=== PATIENT | female | born 1955 | race African-American/Black ===

== ENCOUNTER 2017-04-24 04:37 | Emergency (ER) | payer OTHER ==
[~2017-04-24 04:37] MED LIST: CARB1TAB73 PO; GABA-529 PO; INSLAN SQ; INSU100C3 SQ; LISI-660 PO
== END 2017-04-24 05:00 | disposition left against medical advice (07) ==
LOC: EMS 04:38
DX: R06.02 Shortness of breath (principal); Z53.21 Procedure and treatment not carried out due to patient leaving prior to being seen by health care provider

== ENCOUNTER 2017-07-11 22:49 | Inpatient (IN) | payer OTHER ==
[~2017-07-11] VITALS: Ht 165.1 cm; Wt 55.3 kg
[~2017-07-11 22:49] MED LIST changes: +ASPI-556 PO; +ATOR10TA84 PO; -INSU100C3 SQ; +METO25 PO
[2017-07-11 23:07] LABS: GLUCOSE,POINT OF CARE 179 MG/DL (70-110)
[2017-07-12 00:07] LABS: BASOPHILS % (AUTO) 0.8 % (0.0-2.0); EOSINOPHILS % (AUTO) 2.1 % (1.0-6.0); HEMATOCRIT 36.7 % (36-46); HEMOGLOBIN 12.2 g/dL (12.0-16.0); LYMPHOCYTES # (AUTO) 2.9 K/uL (1.0-4.8); LYMPHOCYTES % (AUTO) 35.6 % (22.0-44.0); MEAN CORPUSCULAR HEMOGLOBIN 28.4 pg (26.0-34.0); MEAN CORPUSCULAR HGB CONC 33.2 G/dL (31.0-37.0); MEAN CORPUSCULAR VOLUME 86 fL (80-100); MONOCYTES # (AUTO) 0.6 K/uL (0.1-1.0); MONOCYTES % (AUTO) 6.7 % (2.0-9.0); NEUTROPHILS # (AUTO) 4.5 K/uL (1.8-7.7); NEUTROPHILS % (AUTO) 54.8 % (40.0-70.0); PLATELET COUNT (AUTO) 344 K/uL (150-450); RED BLOOD CELL COUNT(AUTO) 4.29 MIL/uL (4.00-5.20); RED CELL DISTRIBUTION WIDTH 13.6 % (11.5-14.5); WHITE BLOOD COUNT (AUTO) 8.2 K/uL (4.5-11.0)
[2017-07-12 00:19] LABS: ANION GAP 9 mmol/L (8-16); CALCIUM, TOTAL 9.4 mg/dL (8.8-10.5); CARBON DIOXIDE 26 mmol/L (22-29); CHLORIDE 98 mmol/L (98-107); CREATININE 0.96 mg/dL (0.60-1.30); GLOMERULAR FILTR. RATE CALC > 60 mL/min (>60); POTASSIUM 3.4 mmol/L (3.5-5.1); SODIUM SERUM 133 mmol/L (136-145); UREA NITROGEN, BLOOD 11 mg/dL (7-18)
[2017-07-12 00:20] LABS: ALANINE AMINOTRANSFERASE 17 U/L (12-78); ALBUMIN 3.6 g/dL (3.4-5.0); ASPARTATE AMINOTRANSFERASE 14 U/L (15-37); BILIRUBIN,TOTAL 0.5 mg/dL (0.1-1.0); TOTAL PROTEIN, SERUM 7.4 g/dL (6.4-8.2)
[2017-07-12] MEDS ORDERED: NITROGLYCERIN 0.4 MG SUBLINGUAL TABLET #25 SL ONE (02:30)
[2017-07-12] MEDS ORDERED: 0.9% SODIUM CHLORIDE 10 ML SYRINGE IVP PRN (03:15)
[2017-07-12] MEDS ORDERED: ACETAMINOPHEN 325 MG TABLET PO PRN ×2 (03:15→09:30)
[2017-07-12] MEDS ORDERED: ONDANSETRON HCL 4 MG/2 ML VIAL IVP PRN (03:15)
[2017-07-12 08:35] VITALS: BP 128/86
[2017-07-12] MEDS ORDERED: ALBUTEROL SULFATE 2.5 MG/0.5 ML NEB SOLUTION NEB PRN (09:30)
[2017-07-12] MEDS ORDERED: OxyCODONE HCL/ACETAMINOPHEN 5-325 MG TABLET PO PRN (09:30)
[2017-07-12] MEDS ORDERED: MAGNESIUM HYDROXIDE SUSPENSION 30 ML UDCUP PO PRN (09:30)
[2017-07-12] MEDS ORDERED: ENOXAPARIN SODIUM 40 MG/0.4 ML PF SYRINGE SQ ONE (09:30)
[2017-07-12] MEDS ORDERED: DEXTROSE 50%-WATER 25 GM/50 ML SYRINGE IVP PRN (09:30)
[2017-07-12] MEDS ORDERED: POTASSIUM CHLORIDE 20 MEQ ER TABLET PO PRN ×2 (09:30)
[2017-07-12] MEDS ORDERED: POTASSIUM CHL 10 MEQ/WATER 50 ML IV PRN ×2 (09:30)
[2017-07-12] MEDS: PANTOPRAZOLE SODIUM 40 MG DR TABLET PO SCH (09:48)
[2017-07-12 11:37] VITALS: BP 131/81
[2017-07-12] MEDS: INSULIN ASPART 100 UNITS/ML SQ PRN (12:33)
[2017-07-12 15:33] VITALS: BP 131/86
[2017-07-12] MEDS: ONDANSETRON HCL 4 MG/2 ML VIAL IVP PRN (18:09)
[2017-07-12 19:47] VITALS: BP 134/89
[2017-07-12] MEDS: DOCUSATE SODIUM 100 MG CAPSULE PO SCH (21:23)
[2017-07-12 23:45] VITALS: BP 121/81
[2017-07-13 04:02] LABS: GLUCOSE,POINT OF CARE 129 MG/DL (70-110)
[2017-07-13 04:18] VITALS: BP 139/88
[2017-07-13] MEDS: ONDANSETRON HCL 4 MG/2 ML VIAL IVP PRN ×2 (04:24→20:29)
[2017-07-13] MEDS: MORPHINE SULFATE 4 MG/ML SYRINGE IVP PRN ×2 (04:25→20:35)
[2017-07-13 06:50] LABS: INR 1.1 (0.9-1.1); PROTHROMBIN TIME 11.5 SEC (9.4-11.6)
[2017-07-13 07:45] VITALS: BP 134/91
[2017-07-13] MEDS ORDERED: FentaNYL CITRATE-PF 100 MCG/2 ML VIAL ONE (08:41)
[2017-07-13] MEDS ORDERED: MIDAZOLAM HCL 2 MG/2 ML VIAL ONE (08:42)
[2017-07-13] MEDS ORDERED: MIDAZOLAM HCL 2 MG/2 ML VIAL IVP ONE (09:34)
[2017-07-13] MEDS ORDERED: FentaNYL CITRATE-PF 100 MCG/2 ML VIAL IVP ONE (09:34)
[2017-07-13 11:29] VITALS: BP 122/59
[2017-07-13] MEDS: PANTOPRAZOLE SODIUM 40 MG DR TABLET PO SCH (11:38)
[2017-07-13] MEDS: DOCUSATE SODIUM 100 MG CAPSULE PO SCH ×2 (11:38→20:26)
[2017-07-13 12:12] LABS: GLUCOSE,POINT OF CARE 110 MG/DL (70-110)
[2017-07-13 15:52] VITALS: BP 117/67
[2017-07-13 17:23] LABS: GLUCOSE,POINT OF CARE 82 MG/DL (70-110)
[2017-07-13 17:23] LABS: GLUCOSE COMMENT 1 Received Meds; GLUCOSE,POINT OF CARE 145 MG/DL (70-110)
[2017-07-13] MEDS: INSULIN ASPART 100 UNITS/ML SQ PRN (18:11)
[2017-07-13 20:24] VITALS: BP 100/73
[2017-07-13 23:07] VITALS: BP 113/74
[2017-07-14 05:22] VITALS: BP 117/79
[2017-07-14 07:52] VITALS: BP 114/61
[2017-07-14] MEDS: PANTOPRAZOLE SODIUM 40 MG DR TABLET PO SCH (08:05)
[2017-07-14] MEDS: DOCUSATE SODIUM 100 MG CAPSULE PO SCH (08:05)
[2017-07-14] MEDS ORDERED: METOPROLOL TARTRATE 25 MG TABLET PO SCH (09:00)
[2017-07-14 20:12] LABS: GLUCOSE,POINT OF CARE 139 MG/DL (70-110)
[2017-07-14 20:12] LABS: GLUCOSE,POINT OF CARE 110 MG/DL (70-110)
[2017-07-16 04:52] LABS: GLUCOSE,POINT OF CARE 100 MG/DL (70-110)
[2017-07-16 04:52] LABS: GLUCOSE,POINT OF CARE 140 MG/DL (70-110)
[2017-07-16 04:52] LABS: GLUCOSE COMMENT 1 Received Meds; GLUCOSE,POINT OF CARE 168 MG/DL (70-110)
== END 2017-07-14 11:40 | disposition home or self-care (01) | DRG 204 ==
LOC: EMS 22:50 → 5S 07-12 03:20
PROVIDERS: ADMIT Internal Medicine; ATTEND Internal Medicine
PROC: 0BBL3ZX Excision of Left Lung, Percutaneous Approach, Diagnostic (ICD-10-PCS; principal; 2017-07-13)
DX: R91.8 Other nonspecific abnormal finding of lung field (principal); E11.40 Type 2 diabetes mellitus with diabetic neuropathy, unspecified; G20 Parkinson's disease; F29 Unspecified psychosis not due to a substance or known physiological condition; I10 Essential (primary) hypertension; R00.0 Tachycardia, unspecified; F41.9 Anxiety disorder, unspecified; Z91.19 Patient's noncompliance with other medical treatment and regimen; Z87.891 Personal history of nicotine dependence; Z88.6 Allergy status to analgesic agent; Z79.82 Long term (current) use of aspirin; Z79.899 Other long term (current) drug therapy
CPT/HCPCS: 32405; 70450; 82962; 84132; 87015; 87070; 87101; 87205; 88305; 88312; 88313; 88341; 88342; 93005; 96372; 99285; G0480; J1650; J2250; J2270; J2405; J3010

== ENCOUNTER 2017-12-28 13:42 | Inpatient (IN) | payer OTHER ==
[~2017-12-28] VITALS: Ht 160 cm; Wt 63.5 kg
[~2017-12-28 13:42] MED LIST changes: -GABA-529 PO; -INSLAN SQ; -LISI-660 PO
[2017-12-28] MEDS ORDERED: PROPOFOL 1000 MG/ISO-OSM 100 ML IV ONE (13:49)
[2017-12-28] MEDS ORDERED: SUCCINYLCHOLINE CHLORIDE 20 MG/ML 10 ML VIAL IVP ONE ×2 (14:00→17:26)
[2017-12-28] MEDS ORDERED: ETOMIDATE 2 MG/ML 10 ML VIAL IVP ONE ×2 (14:00→17:26)
[2017-12-28] MEDS ORDERED: PROPOFOL 1000 MG/ISO-OSM 100 ML IV PRN (14:15)
[2017-12-28 14:35] LABS: ABG A-A DIFF O2 611.5 mmHg (10-20.0); ABG BASE EXCESS -7.3 mmol/L (-2.0-3.0); ABG CARBOXYHEMOGLOBIN 1.7 % (0.0-1.5); ABG HCO3 18.7 mmol/L (22.0-26.0); ABG METHEMOGLOBIN 0.5 % (0.0-1.5); ABG OXYGEN CONTENT 12.3 mL/dL (15.0-23.0); ABG OXYGEN SATURATION 88.7 % (95.0-98.0); ABG OXYHEMOGLOBIN 86.7 % (94.0-100.0); ABG PCO2 41 mmHg (35-45); ABG PH 7.292 (7.35-7.450); O2 DEVICE,BLOOD GAS VENTILATOR (ROOM AIR); PO2, ARTERIAL BG 63.6 mmHg (79.0-87.0); SITE, BLOOD GAS RT RADIAL; SOURCE, BLOOD GAS ARTERIAL; TEMPERATURE, FAHRENHEIT, BG 96.6 FAHREN (96.0-98.6)
[2017-12-28 14:36] LABS: PEEP,BG 5 cm H2O; VT, ABG 450 ml
[2017-12-28 14:41] LABS: BASOPHILS % (AUTO) 0.2 % (0.0-2.0); EOSINOPHILS % (AUTO) 0 % (1.0-6.0); HEMATOCRIT 29.3 % (36-46); HEMOGLOBIN 9.2 g/dL (12.0-16.0); LYMPHOCYTES # (AUTO) 0.4 K/uL (1.0-4.8); LYMPHOCYTES % (AUTO) 1.6 % (22.0-44.0); MEAN CORPUSCULAR HEMOGLOBIN 25.5 pg (26.0-34.0); MEAN CORPUSCULAR HGB CONC 31.4 G/dL (31.0-37.0); MEAN CORPUSCULAR VOLUME 81 fL (80-100); MONOCYTES # (AUTO) 1.1 K/uL (0.1-1.0); MONOCYTES % (AUTO) 3.9 % (2.0-9.0); NEUTROPHILS # (AUTO) 26.5 K/uL (1.8-7.7); NEUTROPHILS % (AUTO) 94.3 % (40.0-70.0); PLATELET COUNT (AUTO) 278 K/uL (150-450); RED BLOOD CELL COUNT(AUTO) 3.62 MIL/uL (4.00-5.20); RED CELL DISTRIBUTION WIDTH 16.2 % (11.5-14.5)
[2017-12-28] MEDS ORDERED: SODIUM CHLORIDE 0.9% 1,000 ML IV ONE ×2 (14:45→15:30)
[2017-12-28 14:51] LABS: INR 1.4 (0.9-1.1); PROTHROMBIN TIME 14.7 SEC (9.4-11.6)
[2017-12-28 14:56] LABS: APPEARANCE,URINE CLOUDY (CLEAR); BILIRUBIN,URINE NEGATIVE (NEGATIVE); GLUCOSE, URINE (UA) >=1000 mg/dL (NEGATIVE); KETONES,URINE TRACE mg/dL (NEGATIVE); LEUKOCYTE ESTERASE ,URINE NEGATIVE (NEGATIVE); NITRATE,URINE NEGATIVE (NEGATIVE); OCCULT BLOOD,URINE TRACE (NEGATIVE); PH,URINE 5.5 (5.0-8.0); PROTEIN,URINE SEE CONFIRM (NEGATIVE); UROBILINOGEN,URINE 0.2 mg/dL (<=1.0)
[2017-12-28 14:56] LABS: ALBUMIN 2.8 g/dL (3.4-5.0); ALKALINE PHOSPHATASE 127 U/L (46-116); ANION GAP 17 mmol/L (8-16); ASPARTATE AMINOTRANSFERASE 31 U/L (15-37); BILIRUBIN,TOTAL 0.9 mg/dL (0.1-1.0); CALCIUM, TOTAL 8.8 mg/dL (8.8-10.5); CARBON DIOXIDE 22 mmol/L (22-29); CHLORIDE 99 mmol/L (98-107); CREATININE 0.87 mg/dL (0.60-1.30); GLOMERULAR FILTR. RATE CALC > 60 mL/min (>60); POTASSIUM 3.2 mmol/L (3.5-5.1); SODIUM SERUM 138 mmol/L (136-145); TOTAL PROTEIN, SERUM 6.9 g/dL (6.4-8.2); UREA NITROGEN, BLOOD 13 mg/dL (7-18)
[2017-12-28 15:00] LABS: GLUCOSE,RANDOM 405 mg/dL (70-110)
[2017-12-28] MEDS ORDERED: PIPERACILLIN/TAZO 3.375 GM/D5W 50 ML IV ONE (15:00)
[2017-12-28] MEDS ORDERED: LEVOFLOXACIN 500 MG/D5% WATER 100 ML IV ONE (15:00)
[2017-12-28 15:09] LABS: ALANINE AMINOTRANSFERASE 37 U/L (12-78)
[2017-12-28 15:29] LABS: LACTIC ACID 7.2 mmol/L (0.4-2.0)
[2017-12-28] MEDS ORDERED: ONDANSETRON HCL 4 MG/2 ML VIAL IVP PRN ×2 (15:30→15:45)
[2017-12-28 15:36] LABS: SULFOSALICYLIC ACID,URINE 3+ (Negative)
[2017-12-28 15:37] LABS: RBC,URINE 0-2 /HPF (0-2)
[2017-12-28 15:38] LABS: BACTERIA,URINE Few /HPF (None Seen); SQUAMOUS EPITHELIAL CELL,UR Many /LPF (None Seen)
[2017-12-28 15:39] LABS: AMORPHOUS SEDIMENT,UR Many /LPF (None Seen)
[2017-12-28] MEDS ORDERED: ZOLPIDEM TARTRATE 5 MG TABLET PO PRN (15:45)
[2017-12-28] MEDS ORDERED: ALBUTEROL SULFATE 2.5 MG/0.5 ML NEB SOLUTION NEB PRN ×2 (15:45→16:00)
[2017-12-28] MEDS ORDERED: MAGNESIUM HYDROXIDE SUSPENSION 30 ML UDCUP PO PRN (15:45)
[2017-12-28] MEDS ORDERED: BISACODYL 10 MG RECTAL RECTAL SUPPOSITORY PR PRN (15:45)
[2017-12-28] MEDS ORDERED: IPRATROPIUM BROMIDE 0.5 MG/2.5 ML NEB SOLUTION NEB PRN ×2 (15:45→16:00)
[2017-12-28] MEDS ORDERED: NOREPINEPHRINE 4 MG/D5%-WATER 250 ML IV PRN (15:45)
[2017-12-28] MEDS ORDERED: INSULIN ASPART 100 UNITS/ML SQ PRN (16:00)
[2017-12-28] MEDS: BENZONATATE 100 MG CAPSULE PO SCH ×2 (16:00→21:00)
[2017-12-28 16:41] LABS: INFLUENZA TYPE A NEGATIVE FOR TYPE A (NEGATIVE); INFLUENZA TYPE B NEGATIVE FOR TYPE B (NEGATIVE)
[2017-12-28] MEDS ORDERED: SODIUM CHLORIDE 0.9% 500 ML IV ONE (16:42)
[2017-12-28] MEDS: HEPARIN SODIUM,PORCINE 5,000 UNITS/ML VIAL SQ SCH ×2 (16:55→23:28)
[2017-12-28 17:58] LABS: ABG A-A DIFF O2 576.1 mmHg (10-20.0); ABG BASE EXCESS -0.8 mmol/L (-2.0-3.0); ABG CARBOXYHEMOGLOBIN 0.7 % (0.0-1.5); ABG HCO3 23.9 mmol/L (22.0-26.0); ABG METHEMOGLOBIN 0.4 % (0.0-1.5); ABG OXYGEN CONTENT 12.7 mL/dL (15.0-23.0); ABG OXYGEN SATURATION 97.6 % (95.0-98.0); ABG OXYHEMOGLOBIN 96.5 % (94.0-100.0); ABG PCO2 37 mmHg (35-45); ABG TOTAL HEMOGLOBIN 9.2 G/dL (12.0-18.0); O2 DEVICE,BLOOD GAS VENTILATOR (ROOM AIR); PO2, ARTERIAL BG 99.9 mmHg (79.0-87.0); SITE, BLOOD GAS RT RADIAL; SOURCE, BLOOD GAS ARTERIAL; TEMPERATURE, FAHRENHEIT, BG 98.4 FAHREN (96.0-98.6); VENT MODE, BG Press. Control Vent (ROOM AIR)
[2017-12-28 17:59] LABS: PEEP,BG 10 cm H2O
[2017-12-28 18:15] VITALS: BP 94/52
[2017-12-28] MEDS: RINGERS SOLUTION,LACTATED 1,000 ML IV SCH (18:26)
[2017-12-28] MEDS: MethylPREDNISolone SOD SUCC 125 MG/2 ML VIAL IVP SCH ×2 (18:29→23:29)
[2017-12-28] MEDS: PROPOFOL 1000 MG/ISO-OSM 100 ML IV PRN (19:10)
[2017-12-28] MEDS: ALBUTEROL SULFATE 2.5 MG/0.5 ML NEB SOLUTION NEB SCH (19:49)
[2017-12-28] MEDS: IPRATROPIUM BROMIDE 0.5 MG/2.5 ML NEB SOLUTION NEB SCH (19:50)
[2017-12-28 20:00] VITALS: BP 96/66
[2017-12-28 20:18] LABS: GLUCOSE,POINT OF CARE 274 MG/DL (70-110)
[2017-12-28] MEDS ORDERED: POTASSIUM CHLORIDE 20 MEQ ER TABLET PO PRN ×2 (20:30)
[2017-12-28] MEDS ORDERED: POTASSIUM CHL 10 MEQ/WATER 50 ML IV PRN (20:30)
[2017-12-28] MEDS: DOCUSATE SODIUM 100 MG CAPSULE PO SCH (21:00)
[2017-12-28] MEDS: GuaiFENesin SR 600 MG ER TABLET PO SCH (21:00)
[2017-12-28] MEDS ORDERED: INSULIN REGULAR, HUMAN 100 UNITS/ML SQ PRN (23:30)
[2017-12-29] VITALS (8 sets, daily range): BP systolic 86–134; BP diastolic 58–94
[2017-12-29] MEDS: POTASSIUM CHL 10 MEQ/WATER 50 ML IV PRN ×3 (00:03→01:56)
[2017-12-29] MEDS: INSULIN ASPART 100 UNITS/ML SQ PRN ×4 (00:04→17:46)
[2017-12-29] MEDS ORDERED: SODIUM CHLORIDE 0.9% 100 ML ONE (00:06)
[2017-12-29 01:08] LABS: GLUCOSE,POINT OF CARE 180 MG/DL (70-110)
[2017-12-29] MEDS: IPRATROPIUM BROMIDE 0.5 MG/2.5 ML NEB SOLUTION NEB SCH ×4 (01:38→20:12)
[2017-12-29] MEDS: ALBUTEROL SULFATE 2.5 MG/0.5 ML NEB SOLUTION NEB SCH ×4 (01:38→20:12)
[2017-12-29] MEDS: RINGERS SOLUTION,LACTATED 1,000 ML IV SCH ×3 (01:57→23:10)
[2017-12-29] MEDS: MORPHINE SULFATE 2 MG/ML SYRINGE IVP PRN (02:07)
[2017-12-29] MEDS: PROPOFOL 1000 MG/ISO-OSM 100 ML IV PRN ×3 (05:09→20:31)
[2017-12-29] MEDS: MethylPREDNISolone SOD SUCC 125 MG/2 ML VIAL IVP SCH ×3 (05:10→17:14)
[2017-12-29 05:53] LABS: BASOPHILS % (AUTO) 0.1 % (0.0-2.0); EOSINOPHILS % (AUTO) 0 % (1.0-6.0); HEMATOCRIT 24.3 % (36-46); LYMPHOCYTES # (AUTO) 0.3 K/uL (1.0-4.8); LYMPHOCYTES % (AUTO) 1.5 % (22.0-44.0); MEAN CORPUSCULAR HEMOGLOBIN 26.1 pg (26.0-34.0); MEAN CORPUSCULAR HGB CONC 32.8 G/dL (31.0-37.0); MEAN CORPUSCULAR VOLUME 80 fL (80-100); MONOCYTES # (AUTO) 0.4 K/uL (0.1-1.0); MONOCYTES % (AUTO) 1.8 % (2.0-9.0); NEUTROPHILS # (AUTO) 20.6 K/uL (1.8-7.7); PLATELET COUNT (AUTO) 215 K/uL (150-450); RED BLOOD CELL COUNT(AUTO) 3.06 MIL/uL (4.00-5.20); RED CELL DISTRIBUTION WIDTH 15.8 % (11.5-14.5)
[2017-12-29 05:58] LABS: NEUTROPHILS % (AUTO) 96.6 % (40.0-70.0)
[2017-12-29 06:01] LABS: HEMOGLOBIN A1C 7.7 % (4.5-6.2)
[2017-12-29 06:04] LABS: ALANINE AMINOTRANSFERASE 32 U/L (12-78); ALBUMIN 2.1 g/dL (3.4-5.0); ALKALINE PHOSPHATASE 120 U/L (46-116); ANION GAP 7 mmol/L (8-16); ASPARTATE AMINOTRANSFERASE 30 U/L (15-37); BILIRUBIN,TOTAL 0.4 mg/dL (0.1-1.0); CALCIUM, TOTAL 8.7 mg/dL (8.8-10.5); CARBON DIOXIDE 27 mmol/L (22-29); CHLORIDE 105 mmol/L (98-107); CREATININE 0.52 mg/dL (0.60-1.30); GLOMERULAR FILTR. RATE CALC > 60 mL/min (>60); GLUCOSE,RANDOM 148 mg/dL (70-110); POTASSIUM 4.3 mmol/L (3.5-5.1); SODIUM SERUM 139 mmol/L (136-145); TOTAL PROTEIN, SERUM 5.6 g/dL (6.4-8.2); UREA NITROGEN, BLOOD 14 mg/dL (7-18)
[2017-12-29] MEDS: ASPIRIN 81 MG EC TABLET PO SCH (08:14)
[2017-12-29] MEDS: GuaiFENesin SR 600 MG ER TABLET PO SCH ×2 (08:14→20:30)
[2017-12-29] MEDS: HEPARIN SODIUM,PORCINE 5,000 UNITS/ML VIAL SQ SCH ×2 (08:14→15:51)
[2017-12-29] MEDS: PANTOPRAZOLE SODIUM 40 MG DR TABLET PO SCH (08:14)
[2017-12-29] MEDS: CARBIDOPA/LEVODOPA 25-250 MG TABLET PO SCH (08:14)
[2017-12-29] MEDS: DOCUSATE SODIUM 100 MG CAPSULE PO SCH ×2 (08:15→20:30)
[2017-12-29] MEDS: ATORVASTATIN CALCIUM 10 MG TABLET PO SCH (08:15)
[2017-12-29] MEDS: BENZONATATE 100 MG CAPSULE PO SCH ×3 (08:17→20:30)
[2017-12-29 09:43] LABS: ABG A-A DIFF O2 330.6 mmHg (10-20.0); ABG CARBOXYHEMOGLOBIN 1.6 % (0.0-1.5); ABG HCO3 24.7 mmol/L (22.0-26.0); ABG METHEMOGLOBIN 0.4 % (0.0-1.5); ABG OXYGEN CONTENT 11.1 mL/dL (15.0-23.0); ABG OXYGEN SATURATION 92.8 % (95.0-98.0); ABG OXYHEMOGLOBIN 90.9 % (94.0-100.0); ABG PCO2 31 mmHg (35-45); ABG PH 7.493 (7.35-7.450); ABG TOTAL HEMOGLOBIN 8.6 G/dL (12.0-18.0); PO2, ARTERIAL BG 63.5 mmHg (79.0-87.0); SOURCE, BLOOD GAS ARTERIAL
[2017-12-29 09:44] LABS: O2 DEVICE,BLOOD GAS VENTILATOR (ROOM AIR); PEEP,BG 10 cm H2O; SITE, BLOOD GAS RT RADIAL; SPONTANEOUS VT, BG 490 ml; VENT MODE, BG Press. Control Vent (ROOM AIR)
[2017-12-29 12:08] LABS: GLUCOSE,POINT OF CARE 161 MG/DL (70-110)
[2017-12-29 12:08] LABS: GLUCOSE,POINT OF CARE 165 MG/DL (70-110)
[2017-12-29] MEDS ORDERED: *CLINICAL-CEFEPIME DOSING CLINICAL ONE (13:30)
[2017-12-29] MEDS: LEVOFLOXACIN 750 MG/D5% WATER 150 ML IV SCH (15:51)
[2017-12-29 16:07] LABS: ABG A-A DIFF O2 317.6 mmHg (10-20.0); ABG BASE EXCESS -0.7 mmol/L (-2.0-3.0); ABG CARBOXYHEMOGLOBIN 1.3 % (0.0-1.5); ABG HCO3 24.2 mmol/L (22.0-26.0); ABG METHEMOGLOBIN 0.2 % (0.0-1.5); ABG OXYGEN CONTENT 11.8 mL/dL (15.0-23.0); ABG OXYGEN SATURATION 95.8 % (95.0-98.0); ABG OXYHEMOGLOBIN 94.4 % (94.0-100.0); ABG PCO2 31 mmHg (35-45); ABG PH 7.485 (7.35-7.450); ABG TOTAL HEMOGLOBIN 8.8 G/dL (12.0-18.0); PO2, ARTERIAL BG 76.4 mmHg (79.0-87.0); SOURCE, BLOOD GAS ARTERIAL; TEMPERATURE, FAHRENHEIT, BG 98.5 FAHREN (96.0-98.6)
[2017-12-29] MEDS: CEFEPIME HCL 1 GM in DEXTROSE 5%-WATER 10 ML IV SCH (16:38)
[2017-12-29 17:18] LABS: O2 DEVICE,BLOOD GAS VENTILATOR (ROOM AIR); PEEP,BG 12 cm H2O; SITE, BLOOD GAS RT RADIAL; SPONTANEOUS VT, BG 510 ml; VENT MODE, BG Press. Control Vent (ROOM AIR)
[2017-12-29 17:52] LABS: GLUCOSE,POINT OF CARE 173 MG/DL (70-110)
[2017-12-29] MEDS ORDERED: SODIUM CHLORIDE 0.9% 250 ML IV ONE (20:21)
[2017-12-29] MEDS ORDERED: SODIUM CHLORIDE 0.9% 500 ML IV ONE (23:54)
[2017-12-30] VITALS (8 sets, daily range): BP systolic 93–128; BP diastolic 56–86
[2017-12-30] MEDS: MethylPREDNISolone SOD SUCC 125 MG/2 ML VIAL IVP SCH ×5 (00:22→23:35)
[2017-12-30] MEDS: HEPARIN SODIUM,PORCINE 5,000 UNITS/ML VIAL SQ SCH ×4 (00:23→23:35)
[2017-12-30] MEDS: INSULIN ASPART 100 UNITS/ML SQ PRN ×5 (00:26→23:43)
[2017-12-30] MEDS: IPRATROPIUM BROMIDE 0.5 MG/2.5 ML NEB SOLUTION NEB SCH ×4 (02:10→19:49)
[2017-12-30] MEDS: ALBUTEROL SULFATE 2.5 MG/0.5 ML NEB SOLUTION NEB SCH ×4 (02:10→19:49)
[2017-12-30 04:04] LABS: GLUCOSE,POINT OF CARE 160 MG/DL (70-110)
[2017-12-30] MEDS: CEFEPIME HCL 1 GM in DEXTROSE 5%-WATER 10 ML IV SCH ×2 (04:37→15:48)
[2017-12-30] MEDS: PROPOFOL 1000 MG/ISO-OSM 100 ML IV PRN ×4 (04:39→21:51)
[2017-12-30 05:23] LABS: EOSINOPHILS % (AUTO) 0 % (1.0-6.0); HEMATOCRIT 24.6 % (36-46); HEMOGLOBIN 8.1 g/dL (12.0-16.0); LYMPHOCYTES # (AUTO) 0.3 K/uL (1.0-4.8); LYMPHOCYTES % (AUTO) 1.2 % (22.0-44.0); MEAN CORPUSCULAR HEMOGLOBIN 26.4 pg (26.0-34.0); MEAN CORPUSCULAR VOLUME 80 fL (80-100); MONOCYTES # (AUTO) 0.4 K/uL (0.1-1.0); MONOCYTES % (AUTO) 1.9 % (2.0-9.0); NEUTROPHILS # (AUTO) 21.8 K/uL (1.8-7.7); PLATELET COUNT (AUTO) 251 K/uL (150-450); RED BLOOD CELL COUNT(AUTO) 3.08 MIL/uL (4.00-5.20); RED CELL DISTRIBUTION WIDTH 15.6 % (11.5-14.5)
[2017-12-30 05:30] LABS: ANION GAP 7 mmol/L (8-16); CALCIUM, TOTAL 9.4 mg/dL (8.8-10.5); CARBON DIOXIDE 27 mmol/L (22-29); CHLORIDE 105 mmol/L (98-107); GLOMERULAR FILTR. RATE CALC > 60 mL/min (>60); GLUCOSE,RANDOM 181 mg/dL (70-110); POTASSIUM 4.1 mmol/L (3.5-5.1); SODIUM SERUM 139 mmol/L (136-145); UREA NITROGEN, BLOOD 15 mg/dL (7-18)
[2017-12-30 05:46] LABS: NEUTROPHILS % (AUTO) 96.9 % (40.0-70.0)
[2017-12-30] MEDS: DOCUSATE SODIUM 100 MG CAPSULE PO SCH ×2 (08:50→20:05)
[2017-12-30] MEDS: RINGERS SOLUTION,LACTATED 1,000 ML IV SCH ×2 (08:50→17:42)
[2017-12-30] MEDS: ATORVASTATIN CALCIUM 10 MG TABLET PO SCH (08:51)
[2017-12-30] MEDS: ASPIRIN 81 MG EC TABLET PO SCH (08:51)
[2017-12-30] MEDS: CARBIDOPA/LEVODOPA 25-250 MG TABLET PO SCH (08:51)
[2017-12-30] MEDS: BENZONATATE 100 MG CAPSULE PO SCH ×3 (08:51→20:05)
[2017-12-30] MEDS: PANTOPRAZOLE SODIUM 40 MG DR TABLET PO SCH (08:51)
[2017-12-30] MEDS: GuaiFENesin SR 600 MG ER TABLET PO SCH ×2 (08:51→20:05)
[2017-12-30] MEDS: LEVOFLOXACIN 750 MG/D5% WATER 150 ML IV SCH (15:46)
[2017-12-30 17:33] LABS: GLUCOSE,POINT OF CARE 193 MG/DL (70-110)
[2017-12-30 17:33] LABS: GLUCOSE,POINT OF CARE 230 MG/DL (70-110)
[2017-12-30 18:43] LABS: GLUCOSE,POINT OF CARE 196 MG/DL (70-110)
[2017-12-30] MEDS: MORPHINE SULFATE 2 MG/ML SYRINGE IVP PRN (20:54)
[2017-12-31] VITALS (10 sets, daily range): BP systolic 93–128; BP diastolic 65–75
[2017-12-31] MEDS: ALBUTEROL SULFATE 2.5 MG/0.5 ML NEB SOLUTION NEB SCH ×4 (01:38→19:36)
[2017-12-31] MEDS: IPRATROPIUM BROMIDE 0.5 MG/2.5 ML NEB SOLUTION NEB SCH ×4 (01:38→19:36)
[2017-12-31] MEDS ORDERED: SODIUM CHLORIDE 0.9% 250 ML IV ONE (01:49)
[2017-12-31] MEDS ORDERED: SODIUM CHLORIDE 0.9% 500 ML IV ONE (01:50)
[2017-12-31] MEDS: RINGERS SOLUTION,LACTATED 1,000 ML IV SCH ×2 (03:41→13:38)
[2017-12-31] MEDS: CEFEPIME HCL 1 GM in DEXTROSE 5%-WATER 10 ML IV SCH ×2 (03:43→16:57)
[2017-12-31 04:33] LABS: GLUCOSE,POINT OF CARE 237 MG/DL (70-110)
[2017-12-31 04:33] LABS: GLUCOSE,POINT OF CARE 215 MG/DL (70-110)
[2017-12-31 05:12] LABS: BASOPHILS % (AUTO) 0.2 % (0.0-2.0); EOSINOPHILS % (AUTO) 0 % (1.0-6.0); HEMATOCRIT 24.6 % (36-46); HEMOGLOBIN 7.9 g/dL (12.0-16.0); LYMPHOCYTES # (AUTO) 0.1 K/uL (1.0-4.8); LYMPHOCYTES % (AUTO) 0.6 % (22.0-44.0); MEAN CORPUSCULAR HEMOGLOBIN 25.7 pg (26.0-34.0); MEAN CORPUSCULAR HGB CONC 32.1 G/dL (31.0-37.0); MEAN CORPUSCULAR VOLUME 80 fL (80-100); MONOCYTES # (AUTO) 0.4 K/uL (0.1-1.0); MONOCYTES % (AUTO) 1.9 % (2.0-9.0); NEUTROPHILS # (AUTO) 22.1 K/uL (1.8-7.7); PLATELET COUNT (AUTO) 282 K/uL (150-450); RED BLOOD CELL COUNT(AUTO) 3.08 MIL/uL (4.00-5.20); RED CELL DISTRIBUTION WIDTH 15.4 % (11.5-14.5)
[2017-12-31 05:15] LABS: NEUTROPHILS % (AUTO) 97.3 % (40.0-70.0)
[2017-12-31 05:22] LABS: ANION GAP 2 mmol/L (8-16); CALCIUM, TOTAL 9.4 mg/dL (8.8-10.5); CARBON DIOXIDE 31 mmol/L (22-29); CHLORIDE 105 mmol/L (98-107); CREATININE 0.35 mg/dL (0.60-1.30); GLOMERULAR FILTR. RATE CALC > 60 mL/min (>60); GLUCOSE,RANDOM 259 mg/dL (70-110); POTASSIUM 4.4 mmol/L (3.5-5.1); SODIUM SERUM 138 mmol/L (136-145); UREA NITROGEN, BLOOD 15 mg/dL (7-18)
[2017-12-31] MEDS: MethylPREDNISolone SOD SUCC 125 MG/2 ML VIAL IVP SCH ×3 (05:24→18:00)
[2017-12-31] MEDS: INSULIN ASPART 100 UNITS/ML SQ PRN ×2 (05:25→12:46)
[2017-12-31] MEDS: PROPOFOL 1000 MG/ISO-OSM 100 ML IV PRN ×3 (05:44→21:54)
[2017-12-31] MEDS: BENZONATATE 100 MG CAPSULE PO SCH ×3 (08:13→20:24)
[2017-12-31] MEDS: HEPARIN SODIUM,PORCINE 5,000 UNITS/ML VIAL SQ SCH (08:13)
[2017-12-31] MEDS: DOCUSATE SODIUM 100 MG CAPSULE PO SCH ×2 (08:13→20:24)
[2017-12-31] MEDS: MORPHINE SULFATE 2 MG/ML SYRINGE IVP PRN ×2 (08:13→21:57)
[2017-12-31] MEDS: GuaiFENesin SR 600 MG ER TABLET PO SCH ×2 (08:14→20:24)
[2017-12-31] MEDS: CARBIDOPA/LEVODOPA 25-250 MG TABLET PO SCH (08:14)
[2017-12-31] MEDS: PANTOPRAZOLE SODIUM 40 MG DR TABLET PO SCH (08:14)
[2017-12-31] MEDS: ATORVASTATIN CALCIUM 10 MG TABLET PO SCH (08:14)
[2017-12-31] MEDS: ASPIRIN 81 MG EC TABLET PO SCH (08:14)
[2017-12-31 10:46] LABS: ABG BASE EXCESS 3.9 mmol/L (-2.0-3.0); ABG CARBOXYHEMOGLOBIN 0.9 % (0.0-1.5); ABG HCO3 27.6 mmol/L (22.0-26.0); ABG METHEMOGLOBIN 0.4 % (0.0-1.5); ABG OXYGEN CONTENT 11.1 mL/dL (15.0-23.0); ABG OXYGEN SATURATION 93.4 % (95.0-98.0); ABG OXYHEMOGLOBIN 92.2 % (94.0-100.0); ABG PCO2 42 mmHg (35-45); ABG TOTAL HEMOGLOBIN 8.5 G/dL (12.0-18.0); PO2, ARTERIAL BG 68.7 mmHg (79.0-87.0); SOURCE, BLOOD GAS ARTERIAL; TEMPERATURE, FAHRENHEIT, BG 98.6 FAHREN (96.0-98.6)
[2017-12-31 10:47] LABS: O2 DEVICE,BLOOD GAS VENTILATOR (ROOM AIR); PEEP,BG 5 cm H2O; SITE, BLOOD GAS RT RADIAL; SPONTANEOUS VT, BG 410 ml; VENT MODE, BG Press. Control Vent (ROOM AIR)
[2017-12-31] MEDS ORDERED: DEXTROSE 50%-WATER 25 GM/50 ML SYRINGE IVP PRN (16:00)
[2017-12-31] MEDS ORDERED: HEPARIN SODIUM,PORCINE 5,000 UNITS/ML VIAL IVP PRN (16:30)
[2017-12-31] MEDS ORDERED: HEPARIN SODIUM,PORCINE 5,000 UNITS/ML VIAL IVP ONE (16:30)
[2017-12-31 16:43] LABS: GLUCOSE,POINT OF CARE 300 MG/DL (70-110)
[2017-12-31 16:50] LABS: BASOPHILS % (AUTO) 0.1 % (0.0-2.0); EOSINOPHILS % (AUTO) 0 % (1.0-6.0); HEMATOCRIT 24.5 % (36-46); HEMOGLOBIN 7.9 g/dL (12.0-16.0); LYMPHOCYTES # (AUTO) 0.4 K/uL (1.0-4.8); LYMPHOCYTES % (AUTO) 1.3 % (22.0-44.0); MEAN CORPUSCULAR HEMOGLOBIN 25.5 pg (26.0-34.0); MEAN CORPUSCULAR HGB CONC 32.2 G/dL (31.0-37.0); MEAN CORPUSCULAR VOLUME 79 fL (80-100); MONOCYTES # (AUTO) 1.7 K/uL (0.1-1.0); MONOCYTES % (AUTO) 6.1 % (2.0-9.0); NEUTROPHILS # (AUTO) 25.8 K/uL (1.8-7.7); PLATELET COUNT (AUTO) 302 K/uL (150-450); RED BLOOD CELL COUNT(AUTO) 3.09 MIL/uL (4.00-5.20); RED CELL DISTRIBUTION WIDTH 15.6 % (11.5-14.5)
[2017-12-31 16:55] LABS: NEUTROPHILS % (AUTO) 92.5 % (40.0-70.0)
[2017-12-31] MEDS: DEXTROSE 50%-WATER 25 GM/50 ML SYRINGE IVP PRN ×2 (16:56→18:59)
[2017-12-31] MEDS: LEVOFLOXACIN 750 MG/D5% WATER 150 ML IV SCH (16:57)
[2017-12-31] MEDS: HEPARIN SODIUM 25000 UNITS/D5W 250 ML IV PRN (17:49)
[2017-12-31] MEDS: DEXTROSE 5%-0.45% SODIUM CHL 1,000 ML IV SCH (18:35)
[2017-12-31 19:03] LABS: GLUCOSE,POINT OF CARE 32 MG/DL (70-110)
[2017-12-31 22:33] LABS: GLUCOSE,POINT OF CARE 146 MG/DL (70-110)
[2018-01-01] VITALS: BP 94/63
[2018-01-01] MEDS: MethylPREDNISolone SOD SUCC 125 MG/2 ML VIAL IVP SCH ×4 (00:14→17:21)
[2018-01-01] MEDS: INSULIN REGULAR, HUMAN 100 UNITS/ML SQ PRN ×4 (00:15→17:21)
[2018-01-01] MEDS: ALBUTEROL SULFATE 2.5 MG/0.5 ML NEB SOLUTION NEB SCH ×4 (01:41→20:03)
[2018-01-01] MEDS: IPRATROPIUM BROMIDE 0.5 MG/2.5 ML NEB SOLUTION NEB SCH ×4 (01:42→20:03)
[2018-01-01] MEDS: CEFEPIME HCL 1 GM in DEXTROSE 5%-WATER 10 ML IV SCH ×2 (03:55→15:47)
[2018-01-01 04:00] VITALS: BP 106/66
[2018-01-01] MEDS: PROPOFOL 1000 MG/ISO-OSM 100 ML IV PRN ×3 (04:00→09:09)
[2018-01-01 06:26] LABS: BASOPHILS % (AUTO) 0.2 % (0.0-2.0); EOSINOPHILS % (AUTO) 0 % (1.0-6.0); HEMATOCRIT 23.5 % (36-46); HEMOGLOBIN 7.6 g/dL (12.0-16.0); LYMPHOCYTES # (AUTO) 0.2 K/uL (1.0-4.8); LYMPHOCYTES % (AUTO) 0.9 % (22.0-44.0); MEAN CORPUSCULAR HEMOGLOBIN 25.5 pg (26.0-34.0); MEAN CORPUSCULAR HGB CONC 32.1 G/dL (31.0-37.0); MEAN CORPUSCULAR VOLUME 80 fL (80-100); MONOCYTES # (AUTO) 0.5 K/uL (0.1-1.0); MONOCYTES % (AUTO) 1.9 % (2.0-9.0); NEUTROPHILS # (AUTO) 24.1 K/uL (1.8-7.7); PLATELET COUNT (AUTO) 275 K/uL (150-450); RED BLOOD CELL COUNT(AUTO) 2.96 MIL/uL (4.00-5.20); RED CELL DISTRIBUTION WIDTH 15.6 % (11.5-14.5)
[2018-01-01 06:39] LABS: GLUCOSE,POINT OF CARE 45 MG/DL (70-110)
[2018-01-01 06:39] LABS: GLUCOSE,POINT OF CARE 31 MG/DL (70-110)
[2018-01-01 06:39] LABS: GLUCOSE,POINT OF CARE 197 MG/DL (70-110)
[2018-01-01 06:39] LABS: GLUCOSE,POINT OF CARE 142 MG/DL (70-110)
[2018-01-01 06:39] LABS: GLUCOSE,POINT OF CARE 56 MG/DL (70-110)
[2018-01-01 06:39] LABS: GLUCOSE,POINT OF CARE 270 MG/DL (70-110)
[2018-01-01 06:39] LABS: GLUCOSE,POINT OF CARE 98 MG/DL (70-110)
[2018-01-01] MEDS: DEXTROSE 5%-0.45% SODIUM CHL 1,000 ML IV SCH ×2 (06:57→20:50)
[2018-01-01 07:01] LABS: ANION GAP 4 mmol/L (8-16); CALCIUM, TOTAL 9.1 mg/dL (8.8-10.5); CARBON DIOXIDE 30 mmol/L (22-29); CHLORIDE 104 mmol/L (98-107); CREATININE 0.52 mg/dL (0.60-1.30); GLOMERULAR FILTR. RATE CALC > 60 mL/min (>60); GLUCOSE,RANDOM 277 mg/dL (70-110); PHOSPHORUS 2.3 mg/dL (2.5-4.9); POTASSIUM 4.4 mmol/L (3.5-5.1); SODIUM SERUM 138 mmol/L (136-145); UREA NITROGEN, BLOOD 14 mg/dL (7-18)
[2018-01-01] MEDS ORDERED: 0.9% SODIUM CHLORIDE 5 ML NEB SOLUTION NEB ONE (07:32)
[2018-01-01 08:00] VITALS: BP 109/65
[2018-01-01] MEDS: DOCUSATE SODIUM 100 MG CAPSULE PO SCH ×2 (09:07→20:50)
[2018-01-01] MEDS: GuaiFENesin SR 600 MG ER TABLET PO SCH ×2 (09:07→20:50)
[2018-01-01] MEDS: ASPIRIN 81 MG EC TABLET PO SCH (09:08)
[2018-01-01] MEDS: PANTOPRAZOLE SODIUM 40 MG DR TABLET PO SCH (09:08)
[2018-01-01] MEDS: ATORVASTATIN CALCIUM 10 MG TABLET PO SCH (09:08)
[2018-01-01] MEDS: CARBIDOPA/LEVODOPA 25-250 MG TABLET PO SCH (09:08)
[2018-01-01] MEDS: BENZONATATE 100 MG CAPSULE PO SCH ×3 (09:10→20:50)
[2018-01-01 09:49] LABS: ABG A-A DIFF O2 174.3 mmHg (10-20.0); ABG BASE EXCESS 1.5 mmol/L (-2.0-3.0); ABG CARBOXYHEMOGLOBIN 1.4 % (0.0-1.5); ABG HCO3 25.8 mmol/L (22.0-26.0); ABG METHEMOGLOBIN 0.2 % (0.0-1.5); ABG OXYGEN CONTENT 11.1 mL/dL (15.0-23.0); ABG OXYGEN SATURATION 94.5 % (95.0-98.0); ABG PCO2 36 mmHg (35-45); ABG PH 7.465 (7.35-7.450); ABG TOTAL HEMOGLOBIN 8.4 G/dL (12.0-18.0); PO2, ARTERIAL BG 69.6 mmHg (79.0-87.0); SOURCE, BLOOD GAS ARTERIAL; TEMPERATURE, FAHRENHEIT, BG 98.6 FAHREN (96.0-98.6)
[2018-01-01 09:53] LABS: O2 DEVICE,BLOOD GAS VENTILATOR (ROOM AIR); SITE, BLOOD GAS RT RADIAL; VT, ABG 500 ml
[2018-01-01 09:54] LABS: PEEP,BG 5 cm H2O
[2018-01-01 12:00] VITALS: BP 106/62
[2018-01-01] MEDS: HEPARIN SODIUM,PORCINE 5,000 UNITS/ML VIAL IVP PRN (14:09)
[2018-01-01] MEDS: LEVOFLOXACIN 750 MG/D5% WATER 150 ML IV SCH (15:47)
[2018-01-01 16:00] VITALS: BP 103/62
[2018-01-01] MEDS: HEPARIN SODIUM 25000 UNITS/D5W 250 ML IV PRN (18:17)
[2018-01-01 19:07] LABS: GLUCOSE,POINT OF CARE 295 MG/DL (70-110)
[2018-01-01 20:00] VITALS: BP 102/65
[2018-01-02] VITALS: BP 105/60
[2018-01-02] MEDS: INSULIN REGULAR, HUMAN 100 UNITS/ML SQ PRN ×4 (00:01→17:40)
[2018-01-02] MEDS: MethylPREDNISolone SOD SUCC 125 MG/2 ML VIAL IVP SCH ×4 (00:06→17:39)
[2018-01-02] MEDS: PROPOFOL 1000 MG/ISO-OSM 100 ML IV PRN ×4 (01:03→22:35)
[2018-01-02] MEDS: IPRATROPIUM BROMIDE 0.5 MG/2.5 ML NEB SOLUTION NEB SCH ×4 (03:36→19:28)
[2018-01-02] MEDS: ALBUTEROL SULFATE 2.5 MG/0.5 ML NEB SOLUTION NEB SCH ×4 (03:36→19:28)
[2018-01-02 04:00] VITALS: BP 101/71
[2018-01-02 05:08] LABS: BASOPHILS % (AUTO) 0.3 % (0.0-2.0); EOSINOPHILS % (AUTO) 0 % (1.0-6.0); HEMATOCRIT 24.6 % (36-46); HEMOGLOBIN 7.8 g/dL (12.0-16.0); LYMPHOCYTES # (AUTO) 0.2 K/uL (1.0-4.8); LYMPHOCYTES % (AUTO) 0.6 % (22.0-44.0); MEAN CORPUSCULAR HEMOGLOBIN 25.2 pg (26.0-34.0); MEAN CORPUSCULAR HGB CONC 31.6 G/dL (31.0-37.0); MEAN CORPUSCULAR VOLUME 80 fL (80-100); MONOCYTES # (AUTO) 0.7 K/uL (0.1-1.0); MONOCYTES % (AUTO) 2.7 % (2.0-9.0); NEUTROPHILS # (AUTO) 25.9 K/uL (1.8-7.7); PLATELET COUNT (AUTO) 282 K/uL (150-450); RED BLOOD CELL COUNT(AUTO) 3.08 MIL/uL (4.00-5.20); RED CELL DISTRIBUTION WIDTH 15.7 % (11.5-14.5)
[2018-01-02 05:09] LABS: NEUTROPHILS % (AUTO) 96.4 % (40.0-70.0)
[2018-01-02] MEDS: CEFEPIME HCL 1 GM in DEXTROSE 5%-WATER 10 ML IV SCH ×2 (05:12→15:34)
[2018-01-02 05:18] LABS: ANION GAP 3 mmol/L (8-16); CALCIUM, TOTAL 9.1 mg/dL (8.8-10.5); CARBON DIOXIDE 32 mmol/L (22-29); CHLORIDE 104 mmol/L (98-107); CREATININE 0.52 mg/dL (0.60-1.30); GLOMERULAR FILTR. RATE CALC > 60 mL/min (>60); GLUCOSE,RANDOM 266 mg/dL (70-110); POTASSIUM 3.9 mmol/L (3.5-5.1); SODIUM SERUM 139 mmol/L (136-145); UREA NITROGEN, BLOOD 13 mg/dL (7-18)
[2018-01-02] MEDS: HEPARIN SODIUM,PORCINE 5,000 UNITS/ML VIAL IVP PRN (05:43)
[2018-01-02 08:00] VITALS: BP 121/70
[2018-01-02 08:03] LABS: GLUCOSE,POINT OF CARE 274 MG/DL (70-110)
[2018-01-02 08:03] LABS: GLUCOSE,POINT OF CARE 321 MG/DL (70-110)
[2018-01-02 08:03] LABS: GLUCOSE,POINT OF CARE 313 MG/DL (70-110)
[2018-01-02 08:03] LABS: GLUCOSE,POINT OF CARE 270 MG/DL (70-110)
[2018-01-02] MEDS: ATORVASTATIN CALCIUM 10 MG TABLET PO SCH (09:03)
[2018-01-02] MEDS: CARBIDOPA/LEVODOPA 25-250 MG TABLET PO SCH (09:03)
[2018-01-02] MEDS: PANTOPRAZOLE SODIUM 40 MG DR TABLET PO SCH (09:03)
[2018-01-02] MEDS: BENZONATATE 100 MG CAPSULE PO SCH ×3 (09:03→20:30)
[2018-01-02] MEDS: DOCUSATE SODIUM 100 MG CAPSULE PO SCH ×2 (09:03→20:30)
[2018-01-02] MEDS: ASPIRIN 81 MG EC TABLET PO SCH (09:04)
[2018-01-02] MEDS: GuaiFENesin SR 600 MG ER TABLET PO SCH ×2 (09:04→20:30)
[2018-01-02] MEDS: DEXTROSE 5%-0.45% SODIUM CHL 1,000 ML IV SCH (10:36)
[2018-01-02 12:00] VITALS: BP 114/66
[2018-01-02] MEDS: LEVOFLOXACIN 750 MG/D5% WATER 150 ML IV SCH (15:33)
[2018-01-02] MEDS: SODIUM CHLORIDE 0.45% 1,000 ML IV SCH (15:33)
[2018-01-02 16:00] VITALS: BP 97/67
[2018-01-02 20:00] VITALS: BP 96/59
[2018-01-02] MEDS: INSULIN DETEMIR 100 UNITS/ML SQ SCH (20:41)
[2018-01-02] MEDS: HEPARIN SODIUM 25000 UNITS/D5W 250 ML IV PRN (21:12)
[2018-01-03] VITALS: BP 95/61
[2018-01-03] MEDS: MethylPREDNISolone SOD SUCC 125 MG/2 ML VIAL IVP SCH ×4 (00:17→18:00)
[2018-01-03] MEDS: INSULIN REGULAR, HUMAN 100 UNITS/ML SQ PRN ×4 (00:18→19:14)
[2018-01-03] MEDS: IPRATROPIUM BROMIDE 0.5 MG/2.5 ML NEB SOLUTION NEB SCH ×4 (01:47→19:41)
[2018-01-03] MEDS: ALBUTEROL SULFATE 2.5 MG/0.5 ML NEB SOLUTION NEB SCH ×4 (01:48→19:41)
[2018-01-03 04:00] VITALS: BP 102/65
[2018-01-03] MEDS: CEFEPIME HCL 1 GM in DEXTROSE 5%-WATER 10 ML IV SCH ×2 (04:05→17:56)
[2018-01-03 05:13] LABS: EOSINOPHILS % (AUTO) 0 % (1.0-6.0); HEMATOCRIT 25.4 % (36-46); HEMOGLOBIN 8.2 g/dL (12.0-16.0); LYMPHOCYTES # (AUTO) 0.3 K/uL (1.0-4.8); LYMPHOCYTES % (AUTO) 0.9 % (22.0-44.0); MEAN CORPUSCULAR HEMOGLOBIN 25.5 pg (26.0-34.0); MEAN CORPUSCULAR HGB CONC 32.2 G/dL (31.0-37.0); MEAN CORPUSCULAR VOLUME 79 fL (80-100); MONOCYTES # (AUTO) 0.7 K/uL (0.1-1.0); MONOCYTES % (AUTO) 2.3 % (2.0-9.0); NEUTROPHILS # (AUTO) 28.5 K/uL (1.8-7.7); PLATELET COUNT (AUTO) 344 K/uL (150-450); RED BLOOD CELL COUNT(AUTO) 3.21 MIL/uL (4.00-5.20); RED CELL DISTRIBUTION WIDTH 15.6 % (11.5-14.5)
[2018-01-03] MEDS: PROPOFOL 1000 MG/ISO-OSM 100 ML IV PRN ×4 (05:13→23:32)
[2018-01-03 05:58] LABS: GLUCOSE,POINT OF CARE 272 MG/DL (70-110)
[2018-01-03 05:58] LABS: GLUCOSE,POINT OF CARE 262 MG/DL (70-110)
[2018-01-03 05:58] LABS: GLUCOSE,POINT OF CARE 235 MG/DL (70-110)
[2018-01-03 06:33] LABS: ANION GAP 3 mmol/L (8-16); CALCIUM, TOTAL 8.9 mg/dL (8.8-10.5); CARBON DIOXIDE 32 mmol/L (22-29); CHLORIDE 103 mmol/L (98-107); CREATININE 0.46 mg/dL (0.60-1.30); GLOMERULAR FILTR. RATE CALC > 60 mL/min (>60); GLUCOSE,RANDOM 263 mg/dL (70-110); POTASSIUM 3.8 mmol/L (3.5-5.1); SODIUM SERUM 138 mmol/L (136-145); UREA NITROGEN, BLOOD 15 mg/dL (7-18)
[2018-01-03 06:46] LABS: NEUTROPHILS % (AUTO) 96.8 % (40.0-70.0)
[2018-01-03 07:53] LABS: GLUCOSE,POINT OF CARE 265 MG/DL (70-110)
[2018-01-03 07:53] LABS: GLUCOSE,POINT OF CARE 281 MG/DL (70-110)
[2018-01-03 08:00] VITALS: BP 129/71
[2018-01-03] MEDS: GuaiFENesin SR 600 MG ER TABLET PO SCH ×2 (10:07→20:44)
[2018-01-03] MEDS: BENZONATATE 100 MG CAPSULE PO SCH ×3 (10:08→20:45)
[2018-01-03] MEDS: ATORVASTATIN CALCIUM 10 MG TABLET PO SCH (10:08)
[2018-01-03] MEDS: PANTOPRAZOLE SODIUM 40 MG DR TABLET PO SCH (10:08)
[2018-01-03] MEDS: CARBIDOPA/LEVODOPA 25-250 MG TABLET PO SCH (10:08)
[2018-01-03] MEDS: DOCUSATE SODIUM 100 MG CAPSULE PO SCH ×2 (10:08→20:44)
[2018-01-03] MEDS: ASPIRIN 81 MG EC TABLET PO SCH (10:08)
[2018-01-03] MEDS ORDERED: RACEPINEPHRINE HCL 2.25% 0.5 ML NEB SOLUTION NEB ONE (10:54)
[2018-01-03 12:00] VITALS: BP 98/57
[2018-01-03] MEDS: HEPARIN SODIUM,PORCINE 5,000 UNITS/ML VIAL IVP PRN (12:23)
[2018-01-03] MEDS: SODIUM CHLORIDE 0.45% 1,000 ML IV SCH (12:38)
[2018-01-03 15:13] LABS: GLUCOSE,POINT OF CARE 249 MG/DL (70-110)
[2018-01-03 16:00] VITALS: BP 96/57
[2018-01-03] MEDS: LEVOFLOXACIN 750 MG/D5% WATER 150 ML IV SCH (17:57)
[2018-01-03 20:00] VITALS: BP 91/54
[2018-01-03 20:03] LABS: GLUCOSE,POINT OF CARE 302 MG/DL (70-110)
[2018-01-03] MEDS: INSULIN DETEMIR 100 UNITS/ML SQ SCH (22:41)
[2018-01-04] VITALS (7 sets, daily range): BP systolic 91–128; BP diastolic 53–68
[2018-01-04] MEDS: MethylPREDNISolone SOD SUCC 125 MG/2 ML VIAL IVP SCH ×5 (00:41→23:31)
[2018-01-04] MEDS: INSULIN REGULAR, HUMAN 100 UNITS/ML SQ PRN ×5 (00:43→23:56)
[2018-01-04] MEDS: HEPARIN SODIUM 25000 UNITS/D5W 250 ML IV PRN ×2 (01:05→22:28)
[2018-01-04] MEDS: HEPARIN SODIUM,PORCINE 5,000 UNITS/ML VIAL IVP PRN ×2 (01:52→10:18)
[2018-01-04] MEDS: IPRATROPIUM BROMIDE 0.5 MG/2.5 ML NEB SOLUTION NEB SCH ×4 (01:52→19:33)
[2018-01-04] MEDS: ALBUTEROL SULFATE 2.5 MG/0.5 ML NEB SOLUTION NEB SCH ×4 (01:53→19:33)
[2018-01-04] MEDS: CEFEPIME HCL 1 GM in DEXTROSE 5%-WATER 10 ML IV SCH ×2 (04:40→15:32)
[2018-01-04] MEDS: PROPOFOL 1000 MG/ISO-OSM 100 ML IV PRN ×3 (05:28→23:59)
[2018-01-04 06:33] LABS: GLUCOSE,POINT OF CARE 277 MG/DL (70-110)
[2018-01-04 06:34] LABS: GLUCOSE,POINT OF CARE 290 MG/DL (70-110)
[2018-01-04 06:34] LABS: GLUCOSE,POINT OF CARE 246 MG/DL (70-110)
[2018-01-04 06:40] LABS: HEMATOCRIT 26.4 % (36-46); HEMOGLOBIN 8.4 g/dL (12.0-16.0); MEAN CORPUSCULAR HEMOGLOBIN 25.2 pg (26.0-34.0); MEAN CORPUSCULAR HGB CONC 31.7 G/dL (31.0-37.0); MEAN CORPUSCULAR VOLUME 80 fL (80-100); PLATELET COUNT (AUTO) 331 K/uL (150-450); RED BLOOD CELL COUNT(AUTO) 3.32 MIL/uL (4.00-5.20); RED CELL DISTRIBUTION WIDTH 16.1 % (11.5-14.5)
[2018-01-04 08:34] LABS: ANION GAP 7 mmol/L (8-16); CALCIUM, TOTAL 9.1 mg/dL (8.8-10.5); CARBON DIOXIDE 29 mmol/L (22-29); CHLORIDE 103 mmol/L (98-107); CREATININE 0.49 mg/dL (0.60-1.30); GLOMERULAR FILTR. RATE CALC > 60 mL/min (>60); GLUCOSE,RANDOM 247 mg/dL (70-110); SODIUM SERUM 139 mmol/L (136-145); UREA NITROGEN, BLOOD 17 mg/dL (7-18)
[2018-01-04] MEDS: DOCUSATE SODIUM 100 MG CAPSULE PO SCH ×2 (08:34→20:24)
[2018-01-04] MEDS: ASPIRIN 81 MG EC TABLET PO SCH (08:34)
[2018-01-04] MEDS: ATORVASTATIN CALCIUM 10 MG TABLET PO SCH (08:34)
[2018-01-04] MEDS: CARBIDOPA/LEVODOPA 25-250 MG TABLET PO SCH (08:35)
[2018-01-04] MEDS: BENZONATATE 100 MG CAPSULE PO SCH ×3 (08:35→20:24)
[2018-01-04] MEDS: GuaiFENesin SR 600 MG ER TABLET PO SCH ×2 (08:35→20:24)
[2018-01-04] MEDS: PANTOPRAZOLE SODIUM 40 MG DR TABLET PO SCH (08:36)
[2018-01-04 10:50] LABS: BAND NEUTROPHILS % (MANUAL) 2 % (1-5); LYMPHOCYTES % (MANUAL) 7 % (22-44); MONOCYTES % (MANUAL) 2 % (2-9); SEGMENTED NEUTROPHILS % 89 % (40-70)
[2018-01-04] MEDS: SODIUM CHLORIDE 0.45% 1,000 ML IV SCH (11:55)
[2018-01-04 15:12] LABS: GLUCOSE,POINT OF CARE 225 MG/DL (70-110)
[2018-01-04] MEDS: LEVOFLOXACIN 750 MG/D5% WATER 150 ML IV SCH (15:32)
[2018-01-04] MEDS: MORPHINE SULFATE 2 MG/ML SYRINGE IVP PRN (19:38)
[2018-01-04] MEDS: INSULIN DETEMIR 100 UNITS/ML SQ SCH (20:25)
[2018-01-04 23:13] LABS: GLUCOSE,POINT OF CARE 247 MG/DL (70-110)
[2018-01-04 23:13] LABS: GLUCOSE,POINT OF CARE 253 MG/DL (70-110)
[2018-01-05] VITALS (11 sets, daily range): BP systolic 90–147; BP diastolic 54–78
[2018-01-05] MEDS: IPRATROPIUM BROMIDE 0.5 MG/2.5 ML NEB SOLUTION NEB SCH ×4 (01:30→20:06)
[2018-01-05] MEDS: ALBUTEROL SULFATE 2.5 MG/0.5 ML NEB SOLUTION NEB SCH ×4 (01:30→20:06)
[2018-01-05] MEDS: CEFEPIME HCL 1 GM in DEXTROSE 5%-WATER 10 ML IV SCH ×2 (03:34→15:27)
[2018-01-05] MEDS: MORPHINE SULFATE 2 MG/ML SYRINGE IVP PRN ×3 (03:38→21:02)
[2018-01-05] MEDS: SODIUM CHLORIDE 0.45% 1,000 ML IV SCH (04:41)
[2018-01-05] MEDS: MethylPREDNISolone SOD SUCC 125 MG/2 ML VIAL IVP SCH ×3 (05:07→23:52)
[2018-01-05] MEDS: INSULIN REGULAR, HUMAN 100 UNITS/ML SQ PRN ×4 (05:39→23:53)
[2018-01-05 06:57] LABS: ANION GAP 4 mmol/L (8-16); CALCIUM, TOTAL 8.7 mg/dL (8.8-10.5); CARBON DIOXIDE 31 mmol/L (22-29); CHLORIDE 101 mmol/L (98-107); CREATININE 0.43 mg/dL (0.60-1.30); GLOMERULAR FILTR. RATE CALC > 60 mL/min (>60); GLUCOSE,RANDOM 276 mg/dL (70-110); SODIUM SERUM 136 mmol/L (136-145); UREA NITROGEN, BLOOD 17 mg/dL (7-18)
[2018-01-05] MEDS ORDERED: HEPARIN SODIUM,PORCINE 5,000 UNITS/ML VIAL IVP PRN (08:00)
[2018-01-05] MEDS: ATORVASTATIN CALCIUM 10 MG TABLET PO SCH (08:07)
[2018-01-05] MEDS: ASPIRIN 81 MG EC TABLET PO SCH (08:07)
[2018-01-05] MEDS: BENZONATATE 100 MG CAPSULE PO SCH ×3 (08:07→20:11)
[2018-01-05] MEDS: CARBIDOPA/LEVODOPA 25-250 MG TABLET PO SCH (08:07)
[2018-01-05] MEDS: DOCUSATE SODIUM 100 MG CAPSULE PO SCH ×2 (08:07→20:11)
[2018-01-05] MEDS: GuaiFENesin SR 600 MG ER TABLET PO SCH ×2 (08:08→20:11)
[2018-01-05] MEDS: PANTOPRAZOLE SODIUM 40 MG DR TABLET PO SCH (08:08)
[2018-01-05] MEDS: HEPARIN SODIUM,PORCINE 5,000 UNITS/ML VIAL IVP PRN (08:10)
[2018-01-05] MEDS: PROPOFOL 1000 MG/ISO-OSM 100 ML IV PRN ×2 (11:26→23:26)
[2018-01-05 13:12] LABS: GLUCOSE,POINT OF CARE 267 MG/DL (70-110)
[2018-01-05] MEDS: LEVOFLOXACIN 750 MG/D5% WATER 150 ML IV SCH (15:26)
[2018-01-05 19:13] LABS: GLUCOSE,POINT OF CARE 271 MG/DL (70-110)
[2018-01-05 19:13] LABS: GLUCOSE,POINT OF CARE 280 MG/DL (70-110)
[2018-01-05 19:14] LABS: GLUCOSE,POINT OF CARE 240 MG/DL (70-110)
[2018-01-05] MEDS: INSULIN DETEMIR 100 UNITS/ML SQ SCH (20:12)
[2018-01-05] MEDS: HEPARIN SODIUM 25000 UNITS/D5W 250 ML IV PRN (21:37)
[2018-01-05 23:57] LABS: GLUCOSE,POINT OF CARE 240 MG/DL (70-110)
[2018-01-06] VITALS: BP 90/56
[2018-01-06] MEDS: HEPARIN SODIUM,PORCINE 5,000 UNITS/ML VIAL IVP PRN (00:27)
[2018-01-06] MEDS: SODIUM CHLORIDE 0.45% 1,000 ML IV SCH ×2 (00:33→20:36)
[2018-01-06] MEDS: ALBUTEROL SULFATE 2.5 MG/0.5 ML NEB SOLUTION NEB SCH ×4 (02:33→20:28)
[2018-01-06] MEDS: IPRATROPIUM BROMIDE 0.5 MG/2.5 ML NEB SOLUTION NEB SCH ×4 (02:33→20:28)
[2018-01-06] MEDS: CEFEPIME HCL 1 GM in DEXTROSE 5%-WATER 10 ML IV SCH ×2 (03:48→16:22)
[2018-01-06 04:00] VITALS: BP 103/62
[2018-01-06] MEDS: MORPHINE SULFATE 2 MG/ML SYRINGE IVP PRN ×2 (04:06→17:09)
[2018-01-06] MEDS: INSULIN REGULAR, HUMAN 100 UNITS/ML SQ PRN ×4 (05:30→20:40)
[2018-01-06 05:42] LABS: BASOPHILS % (AUTO) 0.3 % (0.0-2.0); EOSINOPHILS % (AUTO) 0 % (1.0-6.0); HEMATOCRIT 24.9 % (36-46); LYMPHOCYTES # (AUTO) 0.3 K/uL (1.0-4.8); LYMPHOCYTES % (AUTO) 0.9 % (22.0-44.0); MEAN CORPUSCULAR HEMOGLOBIN 25.3 pg (26.0-34.0); MEAN CORPUSCULAR HGB CONC 32.1 G/dL (31.0-37.0); MEAN CORPUSCULAR VOLUME 79 fL (80-100); MONOCYTES # (AUTO) 1.1 K/uL (0.1-1.0); MONOCYTES % (AUTO) 3.8 % (2.0-9.0); PLATELET COUNT (AUTO) 362 K/uL (150-450); RED BLOOD CELL COUNT(AUTO) 3.16 MIL/uL (4.00-5.20); RED CELL DISTRIBUTION WIDTH 16.2 % (11.5-14.5)
[2018-01-06 06:01] LABS: ANION GAP 3 mmol/L (8-16); CALCIUM, TOTAL 8.7 mg/dL (8.8-10.5); CARBON DIOXIDE 31 mmol/L (22-29); CHLORIDE 101 mmol/L (98-107); CREATININE 0.43 mg/dL (0.60-1.30); GLOMERULAR FILTR. RATE CALC > 60 mL/min (>60); GLUCOSE,RANDOM 303 mg/dL (70-110); PHOSPHORUS 2.9 mg/dL (2.5-4.9); POTASSIUM 4.3 mmol/L (3.5-5.1); SODIUM SERUM 135 mmol/L (136-145); UREA NITROGEN, BLOOD 18 mg/dL (7-18)
[2018-01-06] MEDS: PROPOFOL 1000 MG/ISO-OSM 100 ML IV PRN ×2 (07:18→21:19)
[2018-01-06 08:00] VITALS: BP 105/68
[2018-01-06] MEDS: ACETAMINOPHEN 325 MG TABLET PO PRN ×2 (08:27→16:22)
[2018-01-06] MEDS: PANTOPRAZOLE SODIUM 40 MG DR TABLET PO SCH (08:28)
[2018-01-06] MEDS: ATORVASTATIN CALCIUM 10 MG TABLET PO SCH (08:28)
[2018-01-06] MEDS: DOCUSATE SODIUM 100 MG CAPSULE PO SCH ×2 (08:28→20:37)
[2018-01-06] MEDS: MethylPREDNISolone SOD SUCC 125 MG/2 ML VIAL IVP SCH ×2 (08:28→16:22)
[2018-01-06] MEDS: GuaiFENesin SR 600 MG ER TABLET PO SCH ×2 (08:28→20:37)
[2018-01-06] MEDS: CARBIDOPA/LEVODOPA 25-250 MG TABLET PO SCH (08:28)
[2018-01-06] MEDS: ASPIRIN 81 MG EC TABLET PO SCH (08:28)
[2018-01-06] MEDS: BENZONATATE 100 MG CAPSULE PO SCH ×3 (08:29→20:37)
[2018-01-06 08:47] LABS: GLUCOSE,POINT OF CARE 248 MG/DL (70-110)
[2018-01-06 08:48] LABS: GLUCOSE,POINT OF CARE 290 MG/DL (70-110)
[2018-01-06 11:23] LABS: GLUCOSE,POINT OF CARE 222 MG/DL (70-110)
[2018-01-06 12:00] VITALS: BP 93/57
[2018-01-06] MEDS: LEVOFLOXACIN 750 MG/D5% WATER 150 ML IV SCH (16:21)
[2018-01-06 17:09] VITALS: BP 89/55
[2018-01-06 17:38] LABS: GLUCOSE,POINT OF CARE 261 MG/DL (70-110)
[2018-01-06 20:00] VITALS: BP 95/56
[2018-01-06] MEDS ORDERED: SODIUM CHLORIDE 0.9% 250 ML IV ONE (20:05)
[2018-01-06] MEDS: INSULIN DETEMIR 100 UNITS/ML SQ SCH (20:39)
[2018-01-06 22:28] LABS: GLUCOSE,POINT OF CARE 217 MG/DL (70-110)
[2018-01-07] VITALS (7 sets, daily range): BP systolic 112–140; BP diastolic 55–74
[2018-01-07] MEDS: MethylPREDNISolone SOD SUCC 125 MG/2 ML VIAL IVP SCH ×3 (00:46→15:02)
[2018-01-07] MEDS: HEPARIN SODIUM 25000 UNITS/D5W 250 ML IV PRN (00:47)
[2018-01-07] MEDS: INSULIN REGULAR, HUMAN 100 UNITS/ML SQ PRN ×5 (00:48→20:37)
[2018-01-07] MEDS: IPRATROPIUM BROMIDE 0.5 MG/2.5 ML NEB SOLUTION NEB SCH ×4 (02:25→20:16)
[2018-01-07] MEDS: ALBUTEROL SULFATE 2.5 MG/0.5 ML NEB SOLUTION NEB SCH ×4 (02:25→20:16)
[2018-01-07] MEDS: CEFEPIME HCL 1 GM in DEXTROSE 5%-WATER 10 ML IV SCH ×2 (04:46→15:08)
[2018-01-07] MEDS: PROPOFOL 1000 MG/ISO-OSM 100 ML IV PRN ×3 (04:49→22:29)
[2018-01-07 06:59] LABS: BASOPHILS % (AUTO) 0.2 % (0.0-2.0); EOSINOPHILS % (AUTO) 0.2 % (1.0-6.0); HEMATOCRIT 27.2 % (36-46); HEMOGLOBIN 8.6 g/dL (12.0-16.0); LYMPHOCYTES # (AUTO) 0.4 K/uL (1.0-4.8); LYMPHOCYTES % (AUTO) 1.3 % (22.0-44.0); MEAN CORPUSCULAR HEMOGLOBIN 25.5 pg (26.0-34.0); MEAN CORPUSCULAR HGB CONC 31.7 G/dL (31.0-37.0); MEAN CORPUSCULAR VOLUME 80 fL (80-100); MONOCYTES % (AUTO) 3.2 % (2.0-9.0); PLATELET COUNT (AUTO) 371 K/uL (150-450); RED BLOOD CELL COUNT(AUTO) 3.39 MIL/uL (4.00-5.20); RED CELL DISTRIBUTION WIDTH 16.2 % (11.5-14.5)
[2018-01-07 07:01] LABS: NEUTROPHILS % (AUTO) 95.1 % (40.0-70.0)
[2018-01-07 08:28] LABS: GLUCOSE,POINT OF CARE 204 MG/DL (70-110)
[2018-01-07 08:28] LABS: GLUCOSE,POINT OF CARE 182 MG/DL (70-110)
[2018-01-07] MEDS: GuaiFENesin SR 600 MG ER TABLET PO SCH ×2 (08:41→20:35)
[2018-01-07] MEDS: ATORVASTATIN CALCIUM 10 MG TABLET PO SCH (08:42)
[2018-01-07] MEDS: ASPIRIN 81 MG EC TABLET PO SCH (08:42)
[2018-01-07] MEDS: CARBIDOPA/LEVODOPA 25-250 MG TABLET PO SCH (08:42)
[2018-01-07] MEDS: PANTOPRAZOLE SODIUM 40 MG DR TABLET PO SCH (08:42)
[2018-01-07] MEDS: DOCUSATE SODIUM 100 MG CAPSULE PO SCH ×2 (08:42→20:35)
[2018-01-07] MEDS: HYDROCODONE/ACETAMINOPHEN 5-325 MG TABLET PO PRN (08:42)
[2018-01-07] MEDS: BENZONATATE 100 MG CAPSULE PO SCH ×3 (08:43→20:35)
[2018-01-07] MEDS: MORPHINE SULFATE 2 MG/ML SYRINGE IVP PRN (09:22)
[2018-01-07] MEDS ORDERED: RAPID SEQUENCE KIT [RSI] 1 EACH KIT ONE (09:28)
[2018-01-07] MEDS ORDERED: SUCCINYLCHOLINE CHLORIDE 20 MG/ML 10 ML VIAL ONE (09:29)
[2018-01-07 10:51] LABS: PLATELET MORPHOLOGY COMMENT LARGE PLTS PRESENT
[2018-01-07] MEDS: LEVOFLOXACIN 750 MG/D5% WATER 150 ML IV SCH (15:07)
[2018-01-07] MEDS: SODIUM CHLORIDE 0.45% 1,000 ML IV SCH (15:09)
[2018-01-07 17:18] LABS: GLUCOSE,POINT OF CARE 253 MG/DL (70-110)
[2018-01-07 17:18] LABS: GLUCOSE,POINT OF CARE 256 MG/DL (70-110)
[2018-01-07] MEDS: INSULIN DETEMIR 100 UNITS/ML SQ SCH (20:36)
[2018-01-07 20:58] LABS: GLUCOSE,POINT OF CARE 277 MG/DL (70-110)
[2018-01-08] VITALS (11 sets, daily range): BP systolic 100–145; BP diastolic 7–95
[2018-01-08] MEDS: MethylPREDNISolone SOD SUCC 125 MG/2 ML VIAL IVP SCH ×2 (00:40→08:47)
[2018-01-08] MEDS: INSULIN REGULAR, HUMAN 100 UNITS/ML SQ PRN ×4 (00:42→17:52)
[2018-01-08] MEDS: HEPARIN SODIUM 25000 UNITS/D5W 250 ML IV PRN (00:42)
[2018-01-08] MEDS: ALBUTEROL SULFATE 2.5 MG/0.5 ML NEB SOLUTION NEB SCH ×4 (02:20→20:24)
[2018-01-08] MEDS: IPRATROPIUM BROMIDE 0.5 MG/2.5 ML NEB SOLUTION NEB SCH ×4 (02:20→20:24)
[2018-01-08] MEDS: CEFEPIME HCL 1 GM in DEXTROSE 5%-WATER 10 ML IV SCH ×2 (04:56→15:06)
[2018-01-08] MEDS: PROPOFOL 1000 MG/ISO-OSM 100 ML IV PRN ×3 (04:58→20:13)
[2018-01-08 05:42] LABS: HEMOGLOBIN 8.7 g/dL (12.0-16.0); MEAN CORPUSCULAR HGB CONC 32.2 G/dL (31.0-37.0); MEAN CORPUSCULAR VOLUME 81 fL (80-100); PLATELET COUNT (AUTO) 333 K/uL (150-450); RED BLOOD CELL COUNT(AUTO) 3.35 MIL/uL (4.00-5.20); RED CELL DISTRIBUTION WIDTH 16.1 % (11.5-14.5)
[2018-01-08 06:28] LABS: GLUCOSE,POINT OF CARE 129 MG/DL (70-110)
[2018-01-08 06:28] LABS: GLUCOSE,POINT OF CARE 174 MG/DL (70-110)
[2018-01-08] MEDS: GuaiFENesin SR 600 MG ER TABLET PO SCH ×2 (08:43→20:54)
[2018-01-08] MEDS: BENZONATATE 100 MG CAPSULE PO SCH ×3 (08:44→20:54)
[2018-01-08] MEDS: ASPIRIN 81 MG EC TABLET PO SCH (08:48)
[2018-01-08] MEDS: ATORVASTATIN CALCIUM 10 MG TABLET PO SCH (08:48)
[2018-01-08] MEDS: SODIUM CHLORIDE 0.45% 1,000 ML IV SCH (08:48)
[2018-01-08] MEDS: DOCUSATE SODIUM 100 MG CAPSULE PO SCH ×2 (08:48→20:54)
[2018-01-08] MEDS: CARBIDOPA/LEVODOPA 25-250 MG TABLET PO SCH (08:48)
[2018-01-08] MEDS: LANSOPRAZOLE 30 MG SOLUBLE TABLET PO SCH (09:27)
[2018-01-08] MEDS: MORPHINE SULFATE 2 MG/ML SYRINGE IVP PRN ×3 (09:28→22:46)
[2018-01-08 11:57] LABS: BAND NEUTROPHILS % (MANUAL) 1 % (1-5); LYMPHOCYTES % (MANUAL) 4 % (22-44); MONOCYTES % (MANUAL) 4 % (2-9); SEGMENTED NEUTROPHILS % 91 % (40-70)
[2018-01-08] MEDS: MethylPREDNISolone SOD SUCC 40 MG/ML VIAL IVP SCH (15:06)
[2018-01-08] MEDS: LEVOFLOXACIN 750 MG/D5% WATER 150 ML IV SCH (15:06)
[2018-01-08 17:53] LABS: GLUCOSE,POINT OF CARE 259 MG/DL (70-110)
[2018-01-08] MEDS: INSULIN DETEMIR 100 UNITS/ML SQ SCH (21:17)
[2018-01-09] VITALS (11 sets, daily range): BP systolic 109–137; BP diastolic 63–75
[2018-01-09] MEDS: MethylPREDNISolone SOD SUCC 40 MG/ML VIAL IVP SCH ×3 (00:35→16:14)
[2018-01-09] MEDS: INSULIN REGULAR, HUMAN 100 UNITS/ML SQ PRN ×4 (00:42→18:04)
[2018-01-09] MEDS: IPRATROPIUM BROMIDE 0.5 MG/2.5 ML NEB SOLUTION NEB SCH ×4 (02:07→20:02)
[2018-01-09] MEDS: ALBUTEROL SULFATE 2.5 MG/0.5 ML NEB SOLUTION NEB SCH ×4 (02:07→20:02)
[2018-01-09] MEDS: HEPARIN SODIUM 25000 UNITS/D5W 250 ML IV PRN (02:50)
[2018-01-09] MEDS: MORPHINE SULFATE 2 MG/ML SYRINGE IVP PRN ×4 (02:58→22:23)
[2018-01-09] MEDS: CEFEPIME HCL 1 GM in DEXTROSE 5%-WATER 10 ML IV SCH ×2 (03:37→16:14)
[2018-01-09] MEDS: PROPOFOL 1000 MG/ISO-OSM 100 ML IV PRN ×3 (03:37→23:06)
[2018-01-09] MEDS: SODIUM CHLORIDE 0.45% 1,000 ML IV SCH (05:59)
[2018-01-09 07:02] LABS: GLUCOSE,POINT OF CARE 239 MG/DL (70-110)
[2018-01-09 07:34] LABS: GLUCOSE,POINT OF CARE 218 MG/DL (70-110)
[2018-01-09 07:34] LABS: GLUCOSE,POINT OF CARE 269 MG/DL (70-110)
[2018-01-09 07:34] LABS: GLUCOSE,POINT OF CARE 230 MG/DL (70-110)
[2018-01-09] MEDS: CARBIDOPA/LEVODOPA 25-250 MG TABLET PO SCH (08:58)
[2018-01-09] MEDS: ASPIRIN 81 MG EC TABLET PO SCH (08:58)
[2018-01-09] MEDS: LANSOPRAZOLE 30 MG SOLUBLE TABLET PO SCH (08:58)
[2018-01-09] MEDS: GuaiFENesin SR 600 MG ER TABLET PO SCH ×2 (08:58→22:22)
[2018-01-09] MEDS: DOCUSATE SODIUM 100 MG CAPSULE PO SCH ×2 (08:58→22:22)
[2018-01-09] MEDS: BENZONATATE 100 MG CAPSULE PO SCH ×3 (08:59→22:22)
[2018-01-09] MEDS: ATORVASTATIN CALCIUM 10 MG TABLET PO SCH (09:01)
[2018-01-09 13:03] LABS: GLUCOSE,POINT OF CARE 241 MG/DL (70-110)
[2018-01-09] MEDS: LEVOFLOXACIN 750 MG/D5% WATER 150 ML IV SCH (16:14)
[2018-01-09] MEDS: INSULIN DETEMIR 100 UNITS/ML SQ SCH (22:41)
[2018-01-09 23:53] LABS: GLUCOSE,POINT OF CARE 249 MG/DL (70-110)
[2018-01-10] VITALS (12 sets, daily range): BP systolic 98–132; BP diastolic 59–73
[2018-01-10] MEDS: IPRATROPIUM BROMIDE 0.5 MG/2.5 ML NEB SOLUTION NEB SCH ×4 (01:31→19:53)
[2018-01-10] MEDS: ALBUTEROL SULFATE 2.5 MG/0.5 ML NEB SOLUTION NEB SCH ×4 (01:31→19:53)
[2018-01-10 02:13] LABS: GLUCOSE,POINT OF CARE 280 MG/DL (70-110)
[2018-01-10] MEDS: CEFEPIME HCL 1 GM in DEXTROSE 5%-WATER 10 ML IV SCH ×2 (03:43→16:19)
[2018-01-10 04:18] LABS: GLUCOSE,POINT OF CARE 276 MG/DL (70-110)
[2018-01-10] MEDS: SODIUM CHLORIDE 0.45% 1,000 ML IV SCH ×2 (04:44→23:50)
[2018-01-10] MEDS: PROPOFOL 1000 MG/ISO-OSM 100 ML IV PRN ×2 (04:45→14:36)
[2018-01-10 05:03] LABS: HEMATOCRIT 25.2 % (36-46); HEMOGLOBIN 8.3 g/dL (12.0-16.0); MEAN CORPUSCULAR HEMOGLOBIN 26.1 pg (26.0-34.0); MEAN CORPUSCULAR HGB CONC 32.7 G/dL (31.0-37.0); MEAN CORPUSCULAR VOLUME 80 fL (80-100); PLATELET COUNT (AUTO) 309 K/uL (150-450); RED BLOOD CELL COUNT(AUTO) 3.16 MIL/uL (4.00-5.20); RED CELL DISTRIBUTION WIDTH 16.4 % (11.5-14.5)
[2018-01-10 05:16] LABS: ANION GAP 3 mmol/L (8-16); CALCIUM, TOTAL 8.5 mg/dL (8.8-10.5); CARBON DIOXIDE 31 mmol/L (22-29); CHLORIDE 103 mmol/L (98-107); CREATININE 0.41 mg/dL (0.60-1.30); GLOMERULAR FILTR. RATE CALC > 60 mL/min (>60); GLUCOSE,RANDOM 292 mg/dL (70-110); POTASSIUM 4.1 mmol/L (3.5-5.1); SODIUM SERUM 137 mmol/L (136-145); UREA NITROGEN, BLOOD 14 mg/dL (7-18)
[2018-01-10 07:18] LABS: BAND NEUTROPHILS % (MANUAL) 10 % (1-5); LYMPHOCYTES % (MANUAL) 3 % (22-44); MONOCYTES % (MANUAL) 2 % (2-9); SEGMENTED NEUTROPHILS % 85 % (40-70)
[2018-01-10] MEDS: INSULIN REGULAR, HUMAN 100 UNITS/ML SQ PRN ×4 (07:41→20:59)
[2018-01-10] MEDS: CARBIDOPA/LEVODOPA 25-250 MG TABLET PO SCH (08:21)
[2018-01-10] MEDS: MethylPREDNISolone SOD SUCC 40 MG/ML VIAL IVP SCH ×4 (08:21→23:49)
[2018-01-10] MEDS: BENZONATATE 100 MG CAPSULE PO SCH ×3 (08:21→20:37)
[2018-01-10] MEDS: ATORVASTATIN CALCIUM 10 MG TABLET PO SCH (08:22)
[2018-01-10] MEDS: ASPIRIN 81 MG EC TABLET PO SCH (08:22)
[2018-01-10] MEDS: GuaiFENesin SR 600 MG ER TABLET PO SCH ×2 (08:22→20:36)
[2018-01-10] MEDS: LANSOPRAZOLE 30 MG SOLUBLE TABLET PO SCH (08:22)
[2018-01-10] MEDS: DOCUSATE SODIUM 100 MG CAPSULE PO SCH ×2 (08:23→20:36)
[2018-01-10 08:49] LABS: ABG A-A DIFF O2 142.9 mmHg (10-20.0); ABG BASE EXCESS 3.5 mmol/L (-2.0-3.0); ABG CARBOXYHEMOGLOBIN 1.2 % (0.0-1.5); ABG HCO3 27.5 mmol/L (22.0-26.0); ABG METHEMOGLOBIN 0.2 % (0.0-1.5); ABG OXYGEN CONTENT 12.5 mL/dL (15.0-23.0); ABG OXYGEN SATURATION 97.7 % (95.0-98.0); ABG OXYHEMOGLOBIN 96.3 % (94.0-100.0); ABG PCO2 39 mmHg (35-45); ABG PH 7.464 (7.35-7.450); ABG TOTAL HEMOGLOBIN 9.1 G/dL (12.0-18.0); PO2, ARTERIAL BG 97.6 mmHg (79.0-87.0); SOURCE, BLOOD GAS ARTERIAL; TEMPERATURE, FAHRENHEIT, BG 98.6 FAHREN (96.0-98.6)
[2018-01-10 08:50] LABS: O2 DEVICE,BLOOD GAS VENTILATOR (ROOM AIR); SITE, BLOOD GAS RT RADIAL
[2018-01-10 08:51] LABS: PEEP,BG 5 cm H2O; VT, ABG 500 ml
[2018-01-10] MEDS: MORPHINE SULFATE 2 MG/ML SYRINGE IVP PRN ×3 (09:12→19:52)
[2018-01-10] MEDS: HEPARIN SODIUM 25000 UNITS/D5W 250 ML IV PRN (09:14)
[2018-01-10 09:52] LABS: GLUCOSE,POINT OF CARE 240 MG/DL (70-110)
[2018-01-10 13:33] LABS: GLUCOSE,POINT OF CARE 294 MG/DL (70-110)
[2018-01-10] MEDS: LEVOFLOXACIN 750 MG/D5% WATER 150 ML IV SCH (16:18)
[2018-01-10 18:08] LABS: GLUCOSE,POINT OF CARE 284 MG/DL (70-110)
[2018-01-10] MEDS: INSULIN DETEMIR 100 UNITS/ML SQ SCH (21:00)
[2018-01-10 22:12] LABS: GLUCOSE,POINT OF CARE 254 MG/DL (70-110)
[2018-01-11] VITALS (8 sets, daily range): BP systolic 97–125; BP diastolic 56–73
[2018-01-11] MEDS: INSULIN REGULAR, HUMAN 100 UNITS/ML SQ PRN ×4 (00:11→17:51)
[2018-01-11] MEDS: PROPOFOL 1000 MG/ISO-OSM 100 ML IV PRN ×3 (00:19→20:48)
[2018-01-11] MEDS: HEPARIN SODIUM,PORCINE 5,000 UNITS/ML VIAL IVP PRN (00:27)
[2018-01-11 01:08] LABS: GLUCOSE,POINT OF CARE 214 MG/DL (70-110)
[2018-01-11] MEDS: IPRATROPIUM BROMIDE 0.5 MG/2.5 ML NEB SOLUTION NEB SCH ×4 (01:36→19:27)
[2018-01-11] MEDS: ALBUTEROL SULFATE 2.5 MG/0.5 ML NEB SOLUTION NEB SCH ×4 (01:36→19:27)
[2018-01-11] MEDS: MORPHINE SULFATE 2 MG/ML SYRINGE IVP PRN ×2 (02:16→12:01)
[2018-01-11] MEDS: CEFEPIME HCL 1 GM in DEXTROSE 5%-WATER 10 ML IV SCH ×2 (04:24→16:19)
[2018-01-11 06:41] LABS: ANION GAP 2 mmol/L (8-16); CALCIUM, TOTAL 8.8 mg/dL (8.8-10.5); CARBON DIOXIDE 31 mmol/L (22-29); CHLORIDE 104 mmol/L (98-107); CREATININE 0.36 mg/dL (0.60-1.30); GLOMERULAR FILTR. RATE CALC > 60 mL/min (>60); GLUCOSE,RANDOM 219 mg/dL (70-110); POTASSIUM 4.2 mmol/L (3.5-5.1); SODIUM SERUM 137 mmol/L (136-145); UREA NITROGEN, BLOOD 14 mg/dL (7-18)
[2018-01-11 07:18] LABS: GLUCOSE,POINT OF CARE 222 MG/DL (70-110)
[2018-01-11] MEDS: MethylPREDNISolone SOD SUCC 40 MG/ML VIAL IVP SCH ×2 (08:16→16:19)
[2018-01-11] MEDS: LANSOPRAZOLE 30 MG SOLUBLE TABLET PO SCH (08:17)
[2018-01-11] MEDS: DOCUSATE SODIUM 100 MG CAPSULE PO SCH ×2 (08:17→20:47)
[2018-01-11] MEDS: HYDROCODONE/ACETAMINOPHEN 5-325 MG TABLET PO PRN ×2 (08:17→14:31)
[2018-01-11] MEDS: ATORVASTATIN CALCIUM 10 MG TABLET PO SCH (08:17)
[2018-01-11] MEDS: CARBIDOPA/LEVODOPA 25-250 MG TABLET PO SCH (08:18)
[2018-01-11] MEDS: BENZONATATE 100 MG CAPSULE PO SCH ×3 (08:18→20:47)
[2018-01-11] MEDS: ASPIRIN 81 MG EC TABLET PO SCH (08:18)
[2018-01-11] MEDS: GuaiFENesin SR 600 MG ER TABLET PO SCH ×2 (08:19→20:47)
[2018-01-11] MEDS: HEPARIN SODIUM 25000 UNITS/D5W 250 ML IV PRN (12:03)
[2018-01-11] MEDS: LEVOFLOXACIN 750 MG/D5% WATER 150 ML IV SCH (16:19)
[2018-01-11] MEDS: SODIUM CHLORIDE 0.45% 1,000 ML IV SCH (20:47)
[2018-01-11] MEDS: INSULIN DETEMIR 100 UNITS/ML SQ SCH (20:50)
[2018-01-11 22:52] LABS: GLUCOSE,POINT OF CARE 201 MG/DL (70-110)
[2018-01-11 22:57] LABS: GLUCOSE,POINT OF CARE 188 MG/DL (70-110)
[2018-01-11 22:58] LABS: GLUCOSE,POINT OF CARE 227 MG/DL (70-110)
[2018-01-12] VITALS (7 sets, daily range): BP systolic 91–126; BP diastolic 48–72
[2018-01-12] MEDS: MethylPREDNISolone SOD SUCC 40 MG/ML VIAL IVP SCH ×3 (00:53→15:42)
[2018-01-12] MEDS: INSULIN REGULAR, HUMAN 100 UNITS/ML SQ PRN ×5 (00:55→21:27)
[2018-01-12] MEDS: ALBUTEROL SULFATE 2.5 MG/0.5 ML NEB SOLUTION NEB SCH ×4 (01:43→19:49)
[2018-01-12] MEDS: IPRATROPIUM BROMIDE 0.5 MG/2.5 ML NEB SOLUTION NEB SCH ×4 (01:43→19:49)
[2018-01-12] MEDS: PROPOFOL 1000 MG/ISO-OSM 100 ML IV PRN ×5 (03:07→21:47)
[2018-01-12] MEDS: CEFEPIME HCL 1 GM in DEXTROSE 5%-WATER 10 ML IV SCH ×2 (03:08→15:42)
[2018-01-12 05:21] LABS: ANION GAP 4 mmol/L (8-16); CALCIUM, TOTAL 8.8 mg/dL (8.8-10.5); CARBON DIOXIDE 31 mmol/L (22-29); CHLORIDE 104 mmol/L (98-107); CREATININE 0.46 mg/dL (0.60-1.30); GLOMERULAR FILTR. RATE CALC > 60 mL/min (>60); GLUCOSE,RANDOM 166 mg/dL (70-110); SODIUM SERUM 139 mmol/L (136-145); UREA NITROGEN, BLOOD 14 mg/dL (7-18)
[2018-01-12] MEDS: HEPARIN SODIUM,PORCINE 5,000 UNITS/ML VIAL IVP PRN (06:47)
[2018-01-12] MEDS: HYDROCODONE/ACETAMINOPHEN 5-325 MG TABLET PO PRN ×2 (08:03→12:35)
[2018-01-12] MEDS: BENZONATATE 100 MG CAPSULE PO SCH ×3 (08:03→21:25)
[2018-01-12] MEDS: ASPIRIN 81 MG EC TABLET PO SCH (08:03)
[2018-01-12] MEDS: DOCUSATE SODIUM 100 MG CAPSULE PO SCH ×2 (08:04→21:25)
[2018-01-12] MEDS: GuaiFENesin SR 600 MG ER TABLET PO SCH ×2 (08:04→21:25)
[2018-01-12] MEDS: CARBIDOPA/LEVODOPA 25-250 MG TABLET PO SCH (08:04)
[2018-01-12] MEDS: LANSOPRAZOLE 30 MG SOLUBLE TABLET PO SCH (08:04)
[2018-01-12] MEDS: ATORVASTATIN CALCIUM 10 MG TABLET PO SCH (08:05)
[2018-01-12 08:48] LABS: GLUCOSE,POINT OF CARE 182 MG/DL (70-110)
[2018-01-12 08:48] LABS: GLUCOSE,POINT OF CARE 152 MG/DL (70-110)
[2018-01-12] MEDS: MORPHINE SULFATE 2 MG/ML SYRINGE IVP PRN (11:08)
[2018-01-12] MEDS: HEPARIN SODIUM 25000 UNITS/D5W 250 ML IV PRN (12:23)
[2018-01-12 15:38] LABS: GLUCOSE,POINT OF CARE 239 MG/DL (70-110)
[2018-01-12] MEDS: SODIUM CHLORIDE 0.45% 1,000 ML IV SCH (15:44)
[2018-01-12] MEDS: LEVOFLOXACIN 750 MG/D5% WATER 150 ML IV SCH (15:45)
[2018-01-12 16:38] LABS: ABG A-A DIFF O2 167.3 mmHg (10-20.0); ABG BASE EXCESS 5.5 mmol/L (-2.0-3.0); ABG CARBOXYHEMOGLOBIN 1.8 % (0.0-1.5); ABG HCO3 29.3 mmol/L (22.0-26.0); ABG METHEMOGLOBIN 0.3 % (0.0-1.5); ABG OXYGEN CONTENT 11.5 mL/dL (15.0-23.0); ABG PCO2 32 mmHg (35-45); ABG PH 7.555 (7.35-7.450); ABG TOTAL HEMOGLOBIN 8.5 G/dL (12.0-18.0); O2 DEVICE,BLOOD GAS VENTILATOR (ROOM AIR); PEEP,BG 5 cm H2O; PO2, ARTERIAL BG 81.1 mmHg (79.0-87.0); SITE, BLOOD GAS RT RADIAL; SOURCE, BLOOD GAS ARTERIAL; TEMPERATURE, FAHRENHEIT, BG 98.4 FAHREN (96.0-98.6); VT, ABG 500 ml
[2018-01-12] MEDS: INSULIN DETEMIR 100 UNITS/ML SQ SCH (21:26)
[2018-01-12 22:08] LABS: GLUCOSE,POINT OF CARE 202 MG/DL (70-110)
[2018-01-13] VITALS (8 sets, daily range): BP systolic 109–135; BP diastolic 59–69
[2018-01-13] MEDS: MethylPREDNISolone SOD SUCC 40 MG/ML VIAL IVP SCH ×4 (00:50→23:10)
[2018-01-13] MEDS: INSULIN REGULAR, HUMAN 100 UNITS/ML SQ PRN ×5 (00:51→23:11)
[2018-01-13] MEDS: IPRATROPIUM BROMIDE 0.5 MG/2.5 ML NEB SOLUTION NEB SCH ×4 (02:00→20:00)
[2018-01-13] MEDS: ALBUTEROL SULFATE 2.5 MG/0.5 ML NEB SOLUTION NEB SCH ×4 (02:00→20:00)
[2018-01-13] MEDS: PROPOFOL 1000 MG/ISO-OSM 100 ML IV PRN ×4 (03:57→18:15)
[2018-01-13] MEDS: CEFEPIME HCL 1 GM in DEXTROSE 5%-WATER 10 ML IV SCH ×2 (03:58→15:53)
[2018-01-13 05:55] LABS: ANION GAP 4 mmol/L (8-16); CARBON DIOXIDE 32 mmol/L (22-29); CHLORIDE 104 mmol/L (98-107); CREATININE 0.41 mg/dL (0.60-1.30); GLOMERULAR FILTR. RATE CALC > 60 mL/min (>60); GLUCOSE,RANDOM 214 mg/dL (70-110); SODIUM SERUM 140 mmol/L (136-145); UREA NITROGEN, BLOOD 13 mg/dL (7-18)
[2018-01-13 07:43] LABS: BASOPHILS % (AUTO) 0.5 % (0.0-2.0); EOSINOPHILS % (AUTO) 0.3 % (1.0-6.0); HEMATOCRIT 26.9 % (36-46); HEMOGLOBIN 8.9 g/dL (12.0-16.0); LYMPHOCYTES # (AUTO) 0.4 K/uL (1.0-4.8); LYMPHOCYTES % (AUTO) 1.5 % (22.0-44.0); MEAN CORPUSCULAR HEMOGLOBIN 26.5 pg (26.0-34.0); MEAN CORPUSCULAR HGB CONC 32.9 G/dL (31.0-37.0); MEAN CORPUSCULAR VOLUME 80 fL (80-100); MONOCYTES # (AUTO) 0.5 K/uL (0.1-1.0); NEUTROPHILS # (AUTO) 23.8 K/uL (1.8-7.7); PLATELET COUNT (AUTO) 207 K/uL (150-450); RED BLOOD CELL COUNT(AUTO) 3.35 MIL/uL (4.00-5.20); RED CELL DISTRIBUTION WIDTH 17.9 % (11.5-14.5)
[2018-01-13 07:44] LABS: NEUTROPHILS % (AUTO) 95.7 % (40.0-70.0)
[2018-01-13 08:27] LABS: GLUCOSE,POINT OF CARE 243 MG/DL (70-110)
[2018-01-13 08:27] LABS: GLUCOSE,POINT OF CARE 214 MG/DL (70-110)
[2018-01-13 08:49] LABS: PLATELET MORPHOLOGY COMMENT GIANT PLTS PRESENT
[2018-01-13] MEDS: GuaiFENesin SR 600 MG ER TABLET PO SCH ×2 (09:01→21:07)
[2018-01-13] MEDS: DOCUSATE SODIUM 100 MG CAPSULE PO SCH ×2 (09:02→21:07)
[2018-01-13] MEDS: CARBIDOPA/LEVODOPA 25-250 MG TABLET PO SCH (09:02)
[2018-01-13] MEDS: ASPIRIN 81 MG EC TABLET PO SCH (09:02)
[2018-01-13] MEDS: ATORVASTATIN CALCIUM 10 MG TABLET PO SCH (09:02)
[2018-01-13] MEDS: BENZONATATE 100 MG CAPSULE PO SCH ×3 (09:03→21:07)
[2018-01-13 09:27] LABS: GLUCOSE,POINT OF CARE 234 MG/DL (70-110)
[2018-01-13] MEDS: LANSOPRAZOLE 30 MG SOLUBLE TABLET PO SCH (09:31)
[2018-01-13] MEDS: MORPHINE SULFATE 2 MG/ML SYRINGE IVP PRN (09:37)
[2018-01-13] MEDS: SODIUM CHLORIDE 0.45% 1,000 ML IV SCH (12:32)
[2018-01-13] MEDS: HEPARIN SODIUM 25000 UNITS/D5W 250 ML IV PRN (12:33)
[2018-01-13] MEDS: LEVOFLOXACIN 750 MG/D5% WATER 150 ML IV SCH (15:54)
[2018-01-13 17:33] LABS: GLUCOSE,POINT OF CARE 251 MG/DL (70-110)
[2018-01-13] MEDS: INSULIN DETEMIR 100 UNITS/ML SQ SCH (21:08)
[2018-01-13 21:13] LABS: GLUCOSE,POINT OF CARE 243 MG/DL (70-110)
[2018-01-14] VITALS (16 sets, daily range): BP systolic 101–150; BP diastolic 55–75
[2018-01-14] MEDS: MORPHINE SULFATE 2 MG/ML SYRINGE IVP PRN ×7 (00:18→21:50)
[2018-01-14] MEDS: IPRATROPIUM BROMIDE 0.5 MG/2.5 ML NEB SOLUTION NEB SCH ×4 (01:59→19:57)
[2018-01-14] MEDS: ALBUTEROL SULFATE 2.5 MG/0.5 ML NEB SOLUTION NEB SCH ×4 (01:59→19:57)
[2018-01-14] MEDS: CEFEPIME HCL 1 GM in DEXTROSE 5%-WATER 10 ML IV SCH ×2 (03:19→15:29)
[2018-01-14] MEDS: PROPOFOL 1000 MG/ISO-OSM 100 ML IV PRN ×3 (03:20→15:40)
[2018-01-14] MEDS: INSULIN REGULAR, HUMAN 100 UNITS/ML SQ PRN ×4 (05:27→23:15)
[2018-01-14 06:03] LABS: BASOPHILS % (AUTO) 0.4 % (0.0-2.0); EOSINOPHILS % (AUTO) 0.1 % (1.0-6.0); HEMATOCRIT 26.7 % (36-46); HEMOGLOBIN 8.6 g/dL (12.0-16.0); LYMPHOCYTES # (AUTO) 0.4 K/uL (1.0-4.8); LYMPHOCYTES % (AUTO) 1.4 % (22.0-44.0); MEAN CORPUSCULAR HEMOGLOBIN 26.1 pg (26.0-34.0); MEAN CORPUSCULAR HGB CONC 32.1 G/dL (31.0-37.0); MEAN CORPUSCULAR VOLUME 81 fL (80-100); MONOCYTES # (AUTO) 0.5 K/uL (0.1-1.0); NEUTROPHILS # (AUTO) 25.1 K/uL (1.8-7.7); PLATELET COUNT (AUTO) 193 K/uL (150-450); RED BLOOD CELL COUNT(AUTO) 3.28 MIL/uL (4.00-5.20)
[2018-01-14 06:09] LABS: ANION GAP 4 mmol/L (8-16); CALCIUM, TOTAL 8.5 mg/dL (8.8-10.5); CARBON DIOXIDE 30 mmol/L (22-29); CHLORIDE 103 mmol/L (98-107); CREATININE 0.35 mg/dL (0.60-1.30); GLOMERULAR FILTR. RATE CALC > 60 mL/min (>60); GLUCOSE,RANDOM 291 mg/dL (70-110); POTASSIUM 4.2 mmol/L (3.5-5.1); SODIUM SERUM 137 mmol/L (136-145); UREA NITROGEN, BLOOD 14 mg/dL (7-18)
[2018-01-14 06:39] LABS: GLUCOSE,POINT OF CARE 295 MG/DL (70-110)
[2018-01-14 06:42] LABS: NEUTROPHILS % (AUTO) 96.1 % (40.0-70.0)
[2018-01-14] MEDS: HEPARIN SODIUM,PORCINE 5,000 UNITS/ML VIAL IVP PRN (07:36)
[2018-01-14] MEDS: BENZONATATE 100 MG CAPSULE PO SCH ×3 (08:52→20:34)
[2018-01-14] MEDS: LANSOPRAZOLE 30 MG SOLUBLE TABLET PO SCH (08:52)
[2018-01-14] MEDS: SODIUM CHLORIDE 0.45% 1,000 ML IV SCH (08:52)
[2018-01-14] MEDS: MethylPREDNISolone SOD SUCC 40 MG/ML VIAL IVP SCH ×3 (08:53→23:13)
[2018-01-14] MEDS: ATORVASTATIN CALCIUM 10 MG TABLET PO SCH (08:55)
[2018-01-14] MEDS: DOCUSATE SODIUM 100 MG CAPSULE PO SCH ×2 (08:55→20:34)
[2018-01-14] MEDS: GuaiFENesin SR 600 MG ER TABLET PO SCH ×2 (08:55→20:34)
[2018-01-14] MEDS: CARBIDOPA/LEVODOPA 25-250 MG TABLET PO SCH (08:55)
[2018-01-14] MEDS: ASPIRIN 81 MG EC TABLET PO SCH (08:55)
[2018-01-14] MEDS: HEPARIN SODIUM 25000 UNITS/D5W 250 ML IV PRN (12:40)
[2018-01-14 15:22] LABS: GLUCOSE,POINT OF CARE 212 MG/DL (70-110)
[2018-01-14 15:22] LABS: GLUCOSE,POINT OF CARE 221 MG/DL (70-110)
[2018-01-14] MEDS: LEVOFLOXACIN 750 MG/D5% WATER 150 ML IV SCH (15:29)
[2018-01-14] MEDS: INSULIN DETEMIR 100 UNITS/ML SQ SCH (20:36)
[2018-01-14 20:58] LABS: GLUCOSE,POINT OF CARE 271 MG/DL (70-110)
[2018-01-15] VITALS (7 sets, daily range): BP systolic 113–129; BP diastolic 56–75
[2018-01-15] MEDS: IPRATROPIUM BROMIDE 0.5 MG/2.5 ML NEB SOLUTION NEB SCH ×3 (01:54→14:45)
[2018-01-15] MEDS: ALBUTEROL SULFATE 2.5 MG/0.5 ML NEB SOLUTION NEB SCH ×3 (01:55→14:45)
[2018-01-15] MEDS: CEFEPIME HCL 1 GM in DEXTROSE 5%-WATER 10 ML IV SCH ×2 (03:17→15:00)
[2018-01-15] MEDS: MORPHINE SULFATE 2 MG/ML SYRINGE IVP PRN ×3 (03:17→12:21)
[2018-01-15] MEDS: PROPOFOL 1000 MG/ISO-OSM 100 ML IV PRN ×3 (03:42→13:46)
[2018-01-15] MEDS: SODIUM CHLORIDE 0.45% 1,000 ML IV SCH (05:12)
[2018-01-15 05:24] LABS: BASOPHILS % (AUTO) 0.1 % (0.0-2.0); EOSINOPHILS % (AUTO) 0.2 % (1.0-6.0); HEMATOCRIT 23.9 % (36-46); HEMOGLOBIN 7.7 g/dL (12.0-16.0); LYMPHOCYTES # (AUTO) 0.3 K/uL (1.0-4.8); LYMPHOCYTES % (AUTO) 1.2 % (22.0-44.0); MEAN CORPUSCULAR HEMOGLOBIN 26.3 pg (26.0-34.0); MEAN CORPUSCULAR HGB CONC 32.3 G/dL (31.0-37.0); MEAN CORPUSCULAR VOLUME 82 fL (80-100); MONOCYTES # (AUTO) 0.5 K/uL (0.1-1.0); MONOCYTES % (AUTO) 2.2 % (2.0-9.0); NEUTROPHILS # (AUTO) 21.5 K/uL (1.8-7.7); PLATELET COUNT (AUTO) 171 K/uL (150-450); RED BLOOD CELL COUNT(AUTO) 2.93 MIL/uL (4.00-5.20); RED CELL DISTRIBUTION WIDTH 19.8 % (11.5-14.5)
[2018-01-15 05:29] LABS: ANION GAP 3 mmol/L (8-16); CALCIUM, TOTAL 8.4 mg/dL (8.8-10.5); CARBON DIOXIDE 31 mmol/L (22-29); CHLORIDE 104 mmol/L (98-107); CREATININE 0.39 mg/dL (0.60-1.30); GLOMERULAR FILTR. RATE CALC > 60 mL/min (>60); GLUCOSE,RANDOM 275 mg/dL (70-110); POTASSIUM 4.1 mmol/L (3.5-5.1); SODIUM SERUM 138 mmol/L (136-145); UREA NITROGEN, BLOOD 14 mg/dL (7-18)
[2018-01-15] MEDS: INSULIN REGULAR, HUMAN 100 UNITS/ML SQ PRN ×3 (05:58→17:37)
[2018-01-15 06:19] LABS: NEUTROPHILS % (AUTO) 96.3 % (40.0-70.0)
[2018-01-15 07:48] LABS: GLUCOSE,POINT OF CARE 263 MG/DL (70-110)
[2018-01-15] MEDS: CARBIDOPA/LEVODOPA 25-250 MG TABLET PO SCH (09:00)
[2018-01-15] MEDS: DOCUSATE SODIUM 100 MG CAPSULE PO SCH (09:00)
[2018-01-15] MEDS: MethylPREDNISolone SOD SUCC 40 MG/ML VIAL IVP SCH ×2 (09:05→15:00)
[2018-01-15] MEDS: LANSOPRAZOLE 30 MG SOLUBLE TABLET PO SCH (09:05)
[2018-01-15] MEDS: BENZONATATE 100 MG CAPSULE PO SCH ×2 (09:05→14:59)
[2018-01-15] MEDS: GuaiFENesin SR 600 MG ER TABLET PO SCH (09:05)
[2018-01-15] MEDS: ATORVASTATIN CALCIUM 10 MG TABLET PO SCH (09:06)
[2018-01-15] MEDS: ASPIRIN 81 MG EC TABLET PO SCH (09:06)
[2018-01-15] MEDS: LEVOFLOXACIN 750 MG/D5% WATER 150 ML IV SCH (15:00)
[2018-01-15 17:38] LABS: GLUCOSE,POINT OF CARE 225 MG/DL (70-110)
[2018-01-15 17:38] LABS: GLUCOSE,POINT OF CARE 231 MG/DL (70-110)
[2018-01-15 17:38] LABS: GLUCOSE,POINT OF CARE 208 MG/DL (70-110)
== END 2018-01-15 18:40 | DRG 870 ==
LOC: EMS 13:44 → ICU 16:14
PROVIDERS: ADMIT Internal Medicine; ATTEND Internal Medicine
PROC: 5A1955Z Respiratory Ventilation, Greater than 96 Consecutive Hours (ICD-10-PCS; principal; 2017-12-28)
PROC: 0BH17EZ Insertion of Endotracheal Airway into Trachea, Via Natural or Artificial Opening (ICD-10-PCS; 2017-12-28)
PROC: 02HV33Z Insertion of Infusion Device into Superior Vena Cava, Percutaneous Approach (ICD-10-PCS; 2017-12-28)
PROC: B548ZZA Ultrasonography of Superior Vena Cava, Guidance (ICD-10-PCS; 2017-12-28)
DX: A41.9 Sepsis, unspecified organism (principal); J96.01 Acute respiratory failure with hypoxia; I26.99 Other pulmonary embolism without acute cor pulmonale; J18.9 Pneumonia, unspecified organism; J91.0 Malignant pleural effusion; J44.0 Chronic obstructive pulmonary disease with (acute) lower respiratory infection; G20 Parkinson's disease; E11.40 Type 2 diabetes mellitus with diabetic neuropathy, unspecified; C34.12 Malignant neoplasm of upper lobe, left bronchus or lung; J44.1 Chronic obstructive pulmonary disease with (acute) exacerbation; E11.65 Type 2 diabetes mellitus with hyperglycemia; D64.9 Anemia, unspecified; E87.6 Hypokalemia; E78.5 Hyperlipidemia, unspecified; D72.823 Leukemoid reaction; F17.200 Nicotine dependence, unspecified, uncomplicated; I10 Essential (primary) hypertension; Z91.19 Patient's noncompliance with other medical treatment and regimen; Z78.1 Physical restraint status; Z88.5 Allergy status to narcotic agent; Z79.899 Other long term (current) drug therapy; Z79.82 Long term (current) use of aspirin
CPT/HCPCS: 31500; 71250; 82271; 82533; 82805; 82947; 82962; 83036; 83605; 83735; 84100; 87040; 87070; 87081; 87205; 87804; 93005; 94002; 94003; 94640; 96365; 96368; 96375; 99291; J0330; J0692; J1644; J1956; J2270; J2543; J2704; J2920; J2930; J3480; J3490; J7030; J7040; J7050; J7060; J7120